=== PATIENT | male | born 1975 | race Caucasian/White ===

== ENCOUNTER 2021-11-23 16:28 | Emergency (ER) | payer OTHER, SELFPAY ==
--- NOTE | ~2021-11-23 | XR_ITS ---
EXAMINATION: XR elbow RT 2V CLINICAL INFORMATION: Pain COMPARISON: None TECHNIQUE: 3 views of the elbow XR/XR elbow RT 2V FINDINGS/IMPRESSION: No acute fracture or dislocation. Joint spaces are maintained. No joint effusion. Soft tissues are unremarkable.
[2021-11-23 17:04] VITALS: BP 154/84; PULSE 98; RESP 18; TEMP 36.8; O2SAT 99; BMI 22.9
--- NOTE | 2021-11-23 17:31 | ED_ITS ---
HPI - Extremity Problem General Chief complaint: Extremity Injury, Upper Stated complaint: elbow pain/No injury Time Seen by Provider: 11/23/21 17:27 Source: patient Mode of arrival: ambulatory Limitations: no limitations History of Present Illness HPI Narrative: 46 yold male presents to the ED for right elbow pain for the past 2 weeks. patient describes elbow pain as clicking sound in elbow when he moves radiating down right hand. patient states no swelling, redness, fever, chills, or trauma. Related Data Previous Rx's Medication Instructions Recorded naproxen 500 mg tablet 500 mg PO BID PRN 10 Days #20 tab 11/23/21 Allergies Allergy/AdvReac Type Severity Reaction Status Date / Time No Known Allergies Allergy Verified 11/23/21 17:03 [No Known Allergies*] Review of Systems Verdana 4l Review of Systems: Verdana 4d elbow Verdana 4d Yes all Verdana 4d other systems are reviewed and are negative [facility] Past Medical History Medical History (Updated 11/23/21 @ 18:21 by JOSE Jones) Heart murmur Social History Social History Advance Directives: No Advance Directives Information Provided: No Physical Exam Verdana 4l Vital Signs: Verdana 4d Verdana 4d Vital Signs: Verdana 4d Verdana 4Bd Last Vital Signs Verdana 4d Graphics Artist New 4d Graphics Artist New 4d Temp 98.3 F 11/23/21 17:04 Graphics Artist New 4d Pulse 98 11/23/21 17:04 Graphics Artist New 4d Resp 18 11/23/21 17:04 BP 154/84 H 11/23/21 17:04 Pulse Ox 99 11/23/21 17:04 BMI result Body Mass Index 22.9 Const: General: cooperative, healthy appearing, comfortable, no acute distress, well developed, alert, awake and Physically active Orientation/consciousness: patient oriented x3 HENMT: Head: Yes normal to inspection, Yes No palpable skull fracture present, Yes normocephalic, Yes atraumatic and No abrasion Eyes: General: appearance normal, both eyes and all related structures Neck: Neck: Yes normal visual inspection, Yes full ROM, Yes no lymphadenopathy, Yes no meningeal signs, Yes trachea midline, Yes supple, No anterior neck swelling and No tender Chest: Chest palpation & inspection: normal inspection of the chest and normal palpation of entire chest wall Resp: Effort & Inspection: normal respiratory effort and able to speak in complete sentences Auscultation: clear to auscultation bilaterally Cardio: Jugular venous distension: no JVD Heart sounds: S1 normal heart sound present and S2 normal heart sound present GI: Inspection: Yes normal to inspection and No abdominal wall ecchymosis Palpation (GI): Soft to palpation, not firm, nontender, no guarding and not rigid : General: No CVA tenderness and Yes no CVA tenderness Back/Spine/Pelvis: Back: no CVA tenderness, No CVA tenderness and No back tenderness Skin: General skin exam: no rashes or lesions noted and elasticity normal Neuro: General: patient oriented x3, gait normal, tone normal, moves all extremities, Normal light touch and pain sensation and no meningeal signs Extrem: General: Yes normal to inspection and Yes full ROM Shoulder/upper arm images: 1. Mild tenderness on palpation. Negative for erythema, swelling, ecchymosis, crepitus, or deformity. Brachial and radial pulse intact. Motor/neuro/vascular exam of right upper extremities intact. Psych: Appearance: grossly normal, well kempt and not disheveled Course Course Course Narrative: Not suspecting septic joint. Was sent for x-ray. Reevaluation(s) Reevaluation #1: Patient's xray is normal. Time: 18:16 MDM - Extremity (Nontraumatic) MDM Narrative Medical decision making narrative: elbow pain Discharge Plan Discharge Clinical Impression: Elbow pain Patient Disposition: Home, Self-Care Instructions: Elbow Sprain (ED) Additional Instructions: Xray came back negative for elbow fracture, effusions, or dilocation. You will be discharged with pain meds. Please follow up with PCP. Return to the ED redness, swelling, fever, chills, pus discharge, or any other concerning symptoms. Prescriptions: New naproxen 500 mg tablet 500 mg PO BID PRN (Reason: pain) 10 Days Qty: 20 0RF Referrals: Jethro Warren MD [Physician] - 2 days (Elbow pain) Interventions: ED Discharge Assessment Last Done: 11/23/21 18:57 Discharge Date/Time: 11/23/21 18:57 Print Language: Lithuanian
== END 2021-11-23 18:57 | disposition home or self-care (01) ==
PROVIDERS: Emergency Provider Internal Medicine
DX: M25.521 Pain in right elbow (principal)
CPT/HCPCS: 73070; 99283

== ENCOUNTER 2021-11-28 21:33 | Emergency (ER) | payer OTHER, SELFPAY ==
[2021-11-28 21:42] VITALS: BP 138/86; PULSE 100; RESP 16; TEMP 36.8; O2SAT 96; BMI 22.2
--- NOTE | 2021-11-28 22:12 | ED_ITS ---
HPI - Extremity Problem General Chief complaint: Extremity Injury, Upper Stated complaint: right arm pain/etoh Time Seen by Provider: 11/28/21 22:15 Source: patient Mode of arrival: ambulatory Limitations: no limitations History of Present Illness HPI Narrative: Patient alcoholic homeless came to the ER by ambulance for chronic right forearm nerve pain with going on for long time but actually patient came because he is homeless and cold outside and did not eat anything today patient intoxicated when arrived while in the ER patient started saying that he wants to hurt himself or hurt people making vague suicidal ideations Related Data Previous Rx's Medication Instructions Recorded naproxen 500 mg tablet 500 mg PO BID PRN 10 Days #20 tab 11/23/21 Allergies Allergy/AdvReac Type Severity Reaction Status Date / Time No Known Allergies Allergy Verified 11/23/21 17:03 [No Known Allergies*] Review of Systems Verdana 4l Review of Systems: Yes all other systems are reviewed and Verdana 4d are negative [facility] Past Medical History Medical History Heart murmur Social History Social History Advance Directives: No Physical Exam Verdana 4l Vital Signs: Verdana 4d Verdana 4d Vital Signs: Verdana 4d Verdana 4Bd Last Vital Signs Verdana 4d Shipping Checker New 4d Shipping Checker New 4d Temp 97.6 F 11/28/21 23:54 Shipping Checker New 4d Pulse 91 11/28/21 23:54 Shipping Checker New 4d Resp 18 11/28/21 23:54 BP 120/89 11/28/21 23:54 Pulse Ox 97 11/28/21 23:54 BMI result Body Mass Index 22.2 Appearance: Alert. Oriented X3. No acute distress. intoxicated Eyes: No pallor/ icterus ENT: Pharynx normal. Oral Mucosa moist Neck: Normal inspection. Neck supple. CVS: Normal heart rate and rhythm. Pulses normal. Respiratory: No respiratory distress. Equal air entry bilateral, no wheezing/rales/rhonchi Abdomen: Soft and nontender. Bowel sounds are present, no mass palpable, no CVA tenderness Skin: Skin warm and dry. Normal skin color. Normal skin turgor. Extremities: No lower extremity edema. No calf tenderness Neuro: Oriented X 3. No motor deficit. No sensory deficit.No cerebellar signs , cranial nerves II-XII intact MDM - Extremity (Nontraumatic) MDM Narrative Medical decision making narrative: Initially patient came for nonspecific complaints right forearm pain and alcohol use while stay in the ER patient started complaining of suicidal feeling and homicidal ideation will consult care team Lab Data Result diagrams: 11/28/21 22:52 11/28/21 22:52 Labs: Lab Results 11/28/21 11/28/21 11/28/21 Range/Units 22:52 22:52 22:52 WBC 7.1 (4.8-10.8) X10*3/uL RBC 4.11 L (4.60-5.80) X10*6/uL Hgb 13.9 L (14.0-18.0) g/dl Hct 39.9 L (42.0-52.0) % MCV 97.1 (80.0-98.0) fL MCH 33.8 H (27.0-33.0) pg MCHC 34.8 (31.0-36.0) g/dl RDW 12.5 (11.0-16.0) % Plt Count 183 (160-400) X10*3/uL MPV 10.0 (9.4-12.4) fL Immature Gran % (Auto) 0.3 (0.0-0.4) % Neut % (Auto) 67.3 (45-73) % Lymph % (Auto) 22.6 (20-40) % Tyrrell % (Auto) 6.8 (2-11) % Eos % (Auto) 1.5 (0-4) % Baso % (Auto) 1.5 (0-2) % Lymph # (Auto) 1.6 (1.2-4.9) X10*3/uL Tyrrell # (Auto) 0.5 (0.1-1.2) X10*3/uL Eos # (Auto) 0.1 (0.0-0.4) X10*3/uL Baso # (Auto) 0.1 (0.0-0.2) X10*3/uL Abs Immat Gran (auto) 0.02 (0.00-0.03) X10*3/uL Absolute Neuts (auto) 4.8 (2.0-8.3) x10*3/uL Absolute Nucleated RBC 0.000 (0.0-0.012) X10*3/uL Nucleated RBC % (auto) 0.0 (0.0-0.2) /100WBC Sodium 142 (135-145) mmol/L Potassium 3.5 (3.3-5.1) mmol/L Chloride 105 (96-108) mmol/L Carbon Dioxide 28 (22-29) mmol/L Anion Gap 13 (12-20) BUN 9 (9-16) mg/dL Creatinine 0.77 (0.5-1.4) mg/dL Estim Creat Clear Calc 120.4 Estimated GFR > 60 Random Glucose 114 (60-115) mg/dL Calcium 8.7 (8.4-10.2) mg/dL Magnesium 2.3 (1.6-2.6) mg/dL Total Bilirubin 0.3 (0.0-1.0) mg/dL AST 71 H (5-37) U/L ALT 44 H (0-40) U/L Alkaline Phosphatase 84 (39-117) U/L Total Protein 7.0 (6.5-8.0) g/dL Albumin 4.1 (3.5-5.0) g/dL Urine Opiates Screen (Not Detect) Urine Fentanyl Screen (Not Detect) Ur Barbiturates Screen (Not Detect) Ur Phencyclidine Scrn (Not Detect) Ur Amphetamines Screen (Not Detect) U Benzodiazepines Scrn (Not Detect) Urine Cocaine Screen (Not Detect) U Marijuana (THC) Screen (Not Detect) Ethyl Alcohol mg/dL COVID-19 (TAMERA) Negative (Negative) COVID-19 Clin Com See Note 11/28/21 11/28/21 Range/Units 22:52 22:52 WBC (4.8-10.8) X10*3/uL RBC (4.60-5.80) X10*6/uL Hgb (14.0-18.0) g/dl Hct (42.0-52.0) % MCV (80.0-98.0) fL MCH (27.0-33.0) pg MCHC (31.0-36.0) g/dl RDW (11.0-16.0) % Plt Count (160-400) X10*3/uL MPV (9.4-12.4) fL Immature Gran % (Auto) (0.0-0.4) % Neut % (Auto) (45-73) % Lymph % (Auto) (20-40) % Tyrrell % (Auto) (2-11) % Eos % (Auto) (0-4) % Baso % (Auto) (0-2) % Lymph # (Auto) (1.2-4.9) X10*3/uL Tyrrell # (Auto) (0.1-1.2) X10*3/uL Eos # (Auto) (0.0-0.4) X10*3/uL Baso # (Auto) (0.0-0.2) X10*3/uL Abs Immat Gran (auto) (0.00-0.03) X10*3/uL Absolute Neuts (auto) (2.0-8.3) x10*3/uL Absolute Nucleated RBC (0.0-0.012) X10*3/uL Nucleated RBC % (auto) (0.0-0.2) /100WBC Sodium (135-145) mmol/L Potassium (3.3-5.1) mmol/L Chloride (96-108) mmol/L Carbon Dioxide (22-29) mmol/L Anion Gap (12-20) BUN (9-16) mg/dL Creatinine (0.5-1.4) mg/dL Estim Creat Clear Calc Estimated GFR Random Glucose (60-115) mg/dL Calcium (8.4-10.2) mg/dL Magnesium (1.6-2.6) mg/dL Total Bilirubin (0.0-1.0) mg/dL AST (5-37) U/L ALT (0-40) U/L Alkaline Phosphatase (39-117) U/L Total Protein (6.5-8.0) g/dL Albumin (3.5-5.0) g/dL Urine Opiates Screen Not Detected (Not Detect) Urine Fentanyl Screen Not Detected (Not Detect) Ur Barbiturates Screen Not Detected (Not Detect) Ur Phencyclidine Scrn Not Detected (Not Detect) Ur Amphetamines Screen Not Detected (Not Detect) U Benzodiazepines Scrn Not Detected (Not Detect) Urine Cocaine Screen POSITIVE H (Not Detect) U Marijuana (THC) Screen Not Detected (Not Detect) Ethyl Alcohol 397 H* mg/dL COVID-19 (TAMEAR) (Negative) COVID-19 Clin Com Discharge Plan Discharge Clinical Impression: Alcohol abuse Patient Disposition: Still a Patient Instructions: Abuse of Alcohol (DC) Additional Instructions: Follow detox Stop drinking alcohol Prescriptions: No Action naproxen 500 mg tablet 500 mg PO BID PRN (Reason: pain) 10 Days Qty: 20 0RF
--- NOTE | 2021-11-28 22:27 | PC.NURSE ---
PT made suicidal statements to this RN. PT stated that he is homeless and has been having constant thoughts of harming himself. PT stated that he tried to kill himself three days ago by jumping off a bridge.
[2021-11-28 22:57] VITALS: BP 118/75; PULSE 87; RESP 18; O2SAT 97
[2021-11-28 22:59] LABS: MANUAL DIFF FLAG NO
[2021-11-28 23:04] LABS: Basophils Absolute Auto 0.1 X10*3/uL (0.0-0.2); Basophils Percent Auto 1.5 % (0-2); Eosinophils Absolute Auto 0.1 X10*3/uL (0.0-0.4); Eosinophils Percent Auto 1.5 % (0-4); Hematocrit 39.9 % (42.0-52.0); Hemoglobin 13.9 g/dl (14.0-18.0); Imm Gran Abs Auto 0.02 X10*3/uL (0.00-0.03); Imm Gran Pct Auto 0.3 % (0.0-0.4); Lymphocytes Absolute Auto 1.6 X10*3/uL (1.2-4.9); Lymphocytes Percent Auto 22.6 % (20-40); Mean Corpuscular HGB Conc 34.8 g/dl (31.0-36.0); Mean Corpuscular Hemoglobin 33.8 pg (27.0-33.0); Mean Corpuscular Volume 97.1 fL (80.0-98.0); Monocytes Absolute Auto 0.5 X10*3/uL (0.1-1.2); Monocytes Percent Auto 6.8 % (2-11); Neutrophils Absolute Auto 4.8 x10*3/uL (2.0-8.3); Neutrophils Percent Auto 67.3 % (45-73); Platelet Count 183 X10*3/uL (160-400); Red Blood Count 4.11 X10*6/uL (4.60-5.80); Red Cell Distribution Width 12.5 % (11.0-16.0); White Blood Count 7.1 X10*3/uL (4.8-10.8)
[2021-11-28 23:12] LABS: Ethanol 397 mg/dL
[2021-11-28 23:16] LABS: Alanine Aminotransferase 44 U/L (0-40); Albumin Level 4.1 g/dL (3.5-5.0); Alkaline Phosphatase 84 U/L (39-117); Anion Gap 13 (12-20); Aspartate Amino Transferase 71 U/L (5-37); Bilirubin Total 0.3 mg/dL (0.0-1.0); Blood Urea Nitrogen 9 mg/dL (9-16); Calcium 8.7 mg/dL (8.4-10.2); Carbon Dioxide 28 mmol/L (22-29); Chloride 105 mmol/L (96-108); Creatinine Clr Calc Pharmacy 120.4; Estimated Glomerular Filt Rate > 60; Glucose Random 114 mg/dL (60-115); Magnesium 2.3 mg/dL (1.6-2.6); Potassium 3.5 mmol/L (3.3-5.1); Sodium 142 mmol/L (135-145)
[2021-11-28 23:17] LABS: Amphetamine Screen Urine Not Detected (Not Detect); Barbiturates, Urine Not Detected (Not Detect); Benzodiazepines Screen Urine Not Detected (Not Detect); COVID-19 Test Negative (Negative); Cannabinoid Screen Urine Not Detected (Not Detect); Cocaine Screen Urine POSITIVE (Not Detect); Fentanyl, urine Not Detected (Not Detect); IDNOW Serial# 55D5AD1C; Opiate Screen Urine Not Detected (Not Detect); Phencyclidine Screen Urine Not Detected (Not Detect)
[2021-11-28] MEDS: Folic Acid 1 MG TABLET PO (23:19)
[2021-11-28] MEDS: Thiamine HCL 100 MG TABLET PO (23:19)
[2021-11-28 23:54] VITALS: BP 120/89; PULSE 91; RESP 18; TEMP 36.4; O2SAT 97
--- NOTE | 2021-11-29 05:43 | PC.NURSE ---
Patient slept through the night, no distress observed/reported, appetite good, hydrating well, BHN referral completed/confirmed, pending evaluation in the morning, medication compliant, behavior appropriate, asymptomatic of withdrawal, VSS, will continue to monitor.
--- NOTE | 2021-11-29 07:00 | PC.NURSE ---
patient appears to remain asleep at present respirations are even and unlabored patient appears in no distress.
--- NOTE | 2021-11-29 11:28 | MHC.CARE ---
Patient is a 46 year single man, previously unknown to [facility] or [facility] for mental health emergencies, who came to the Emergency Dept. last night by ambulance that he called for treatment of arm pain. He was intoxicated (BAL 397) and reported vague suicidal ideation during triage. After medical clearance he was fully evaluated by [facility] and determined not in need of inpatient psychiatric treatment, cleared for discharge. By self-report, patient has no history of suicide attempts or gestures. He explained that he does not want to end his life, was frustrated and feeling hopeless about addiction and inability to abstain. At this time patient has no providers or family support, is relatively healthy and has no medical issues besides the arm pain, takes no medication. CARE Team met with patient in [facility]; he was alert, oriented, pleasant and engaged. No signs of psychosis or thought disorder, denied wanting to harm himself or others. He appeared motivated for treatment and expressed a strong desire to obtain long-term sobriety.
[2021-11-29 12:10] VITALS: BP 144/89; PULSE 98; TEMP 36; O2SAT 98
--- NOTE | 2021-11-29 12:52 | MHC.RECOVSUP ---
? Reason for consult:Recovery support o Current location: [facility] o Identified substance use concern:ETOH, cocaine - Seeking ATS (detox) - Support ? Intervention: o ATS bed search started/completed/in process o Harm reduction discussion ? Plan: o Bed search in progress to o Follow up tomorrow o Patient to follow up with [facility] after discharge ? Additional information: Patient seeking detox, spoke to patient regarding harm reduction and mat. Gave patient community resources.
[2021-11-29 17:31] VITALS: BP 149/83; PULSE 74; TEMP 37.1; O2SAT 98
== END 2021-11-29 19:02 | disposition home or self-care (01) ==
PROVIDERS: Emergency Provider Internal Medicine
DX: F10.10 Alcohol abuse, uncomplicated (principal); Y90.8 Blood alcohol level of 240 mg/100 ml or more; R45.851 Suicidal ideations; R45.850 Homicidal ideations; Z20.822 Contact with and (suspected) exposure to COVID-19; Z72.89 Other problems related to lifestyle; Z59.00 Homelessness unspecified
CPT/HCPCS: 80053; 80307; 82077; 83735; 85025; 87635; 99284

== ENCOUNTER 2022-06-01 09:35 | Outpatient (REF) | payer OTHER, SELFPAY | END 2022-06-01 09:36 | disposition home or self-care (01) | LOC: HO.HOSX 09:35 | PROVIDERS: Visit Provider Orthopaedic Surgery | DX: Z13.89 Encounter for screening for other disorder (principal) ==

== ENCOUNTER 2024-09-23 03:38 | Inpatient (IN) | payer OTHER, SELFPAY ==
--- NOTE | 2024-09-23 | ECG_ITS ---
Test Reason : CHECK PROLONG QTC Blood Pressure : / mmHG Vent. Rate : 072 BPM Atrial Rate : 072 BPM P-R Int : 128 ms QRS Dur : 086 ms QT Int : 396 ms P-R-T Axes : 047 -09 054 degrees QTc Int : 433 ms Normal sinus rhythm Normal ECG No previous ECGs available Referred By: Hazel Aceves Electronically Signed By:MONICA RAMOS
[2024-09-23 03:46] VITALS: PULSE 89; O2SAT 98
--- NOTE | 2024-09-23 03:47 | ED.PSYCH ---
HPI - Psych General Chief Complaint: Psychiatric Symptoms Stated Complaint: SI/HI, ETOH, SUBSTANCE Source: patient, EMS and old records reviewed Mode of arrival: EMS Limitations: no limitations History of Present Illness ED Provider: SVETLANA HPI Narrative: 48 yo male hx of PTSD notes crack cocaine today and ETOH use - no prior withdrawal or seizures. He is here c/o SI and HI states he has a list of people instead of hurting someone or himself he presented to the police station and asked for help. He denies any medical issues. He notes he has a place to stay in [place]. complaint: suicidal ideation, feels depressed, homicidal ideation and hallucinations Onset (ago): day(s) (few) Duration: getting worse History of same: Yes Relieving factors: none Exacerbating factors: drug use Context: recent alcohol abuse, recent drug abuse and not taking psychiatric medications Associated psychiatric symptoms: depression, suicidal ideation, homicidal ideation and auditory hallucinations Associated symptoms: denies other symptoms Treatments prior to arrival: none If self harm: admits thoughts of self harm Related Data Previous Rx's ?Medication ?Instructions ?Recorded naproxen 500 mg tablet 500 mg PO BID PRN pain 10 days #20 11/23/21 tabs Allergies Allergy/AdvReac Type Severity Reaction Status Date / Time No Known Allergies Allergy Verified 09/23/24 04:04 [No Known Allergies*] Review of Systems Review of Systems: Constitutional : No Fever, No Chills ENT/Mouth : No Ear Pain, No Nasal Congestion, No sore throat Eyes: No Eye Pain, No Swelling, No Redness Cardiovascular : No Chest Pain, No SOB Respiratory : No Cough, No Sputum, No Dyspnea Gastrointestinal : No Nausea, No Vomiting, No Diarrhea, No Hematochezia, No Melena Genitourinary : No Dysuria, No Urinary Frequency, No Hematuria Musculoskeletal : No Myalgias Skin : No Skin Lesions, No rash Neuro : No Weakness, No Numbness, No Paresthesias, No Dizziness, No Headache Psych : positive Anxiety, positive Depression, positive SI/HI All other systems reviewed and are negative PMFSH Past Medical History Attestation statement: The following information was validated with the patient. Source: old records reviewed Medical History Active substance abuse Heart murmur Social History Social History (Updated 09/23/24 @ 04:00 by Hazel Aceves DO) Alcohol intake: current Patient Tobacco Use Status: Current someday Tobacco user Substance Use Type: Crack/Cocaine Physical Exam Vital Signs: Appearance: Alert. Oriented X3. No acute distress. Unkempt disheveled Eyes: Pupils equal, round and reactive to light. ENT: Pharynx normal. Neck: Normal inspection. Neck supple. CVS: Normal heart rate and rhythm. Pulses normal. Respiratory: No respiratory distress. Breath sounds normal. Abdomen: Soft and non-tender. Skin: Skin warm and dry. Normal skin color. Normal skin turgor. Extremities: No lower extremity edema. No calf ttp Neuro: Oriented X 3. No motor deficit. No sensory deficit. CN2-12 intact Medical Decision Making Medical Decision Making [facility] Narrative: 48 yo male with drug abuse and ETOH abuse here with SI/HI/AH he has no medical complaints at this time will order labs, CIWA, ativan Differential Diagnosis Differential Diagnoses: The differential diagnosis associated with the presentation includes drug use, depression, SI Admission/Observation Consideration of admission/observation: Escalation of care including admission/observation considered physician observation started at 414am Consult Healthcare Provider Management of the patient was discussed with: Behavioral Health Provider Lab Data [facility] Lab Attestation statement: I reviewed the patient's lab results. Independent Historian Clinical information obtained from an independent historian. History obtained from or confirmed by: EMS External Record Review External record reviewed: Outpatient record Social Determinants Patient?s care significantly limited by Social Determinants of Health including: Problems related to primary support group Discharge Plan Discharge Clinical Impression: Alcohol abuse, Active substance abuse Patient Disposition: Still a Patient Prescriptions: No Action naproxen 500 mg tablet 500 mg PO BID PRN (Reason: pain) 10 Days Qty: 20 0RF Interventions: [place]-Suicide Risk Severity Scale Last Done: 09/23/24 04:05 Print Language: Iranian
[2024-09-23 03:56] VITALS: BP 135/101; PULSE 74; RESP 16; TEMP 37.2; O2SAT 98; BMI 23.0
--- NOTE | 2024-09-23 04:27 | PC.NURSE ---
Patient stated to [regarding homicidal ideation/intent]: I have a list of people that he wants to harm. Pt refusing to disclose any additional information regarding SI/HI plans at this time. Pt states that he is seeking detox. Dual Dx needed. Pt is calm/cooperative at this time. Labs were attempted to be drawn, but were unsuccessful. Pt agreeable to another attempt to obtain labs in a few minutes . Pt also stated that he urinated just prior to coming to ED, but will provide a urine specimen once he's able. Dr. Aceves aware.
--- NOTE | 2024-09-23 05:00 | PC.NURSE ---
Labs collected and sent for analysis. Awaiting results.
[2024-09-23 05:01] LABS: MANUAL DIFF FLAG NO
[2024-09-23 05:02] LABS: Basophils Absolute Auto 0.1 X10*3/uL (0.0-0.2); Basophils Percent Auto 0.7 % (0-2); Eosinophils Percent Auto 0.4 % (0-4); Hematocrit 48.4 % (42.0-52.0); Hemoglobin 17.1 g/dl (14.0-18.0); Imm Gran Abs Auto 0.03 X10*3/uL (0.00-0.03); Imm Gran Pct Auto 0.3 % (0.0-0.4); Lymphocytes Absolute Auto 1.9 X10*3/uL (1.2-4.9); Lymphocytes Percent Auto 18.7 % (20-40); Mean Corpuscular HGB Conc 35.3 g/dl (31.0-36.0); Mean Corpuscular Hemoglobin 30.3 pg (27.0-33.0); Mean Corpuscular Volume 85.8 fL (80.0-98.0); Monocytes Absolute Auto 0.6 X10*3/uL (0.1-1.2); Monocytes Percent Auto 5.9 % (2-11); Neutrophils Absolute Auto 7.6 x10*3/uL (2.0-8.3); Platelet Count 315 X10*3/uL (160-400); Red Blood Count 5.64 X10*6/uL (4.60-5.80); Red Cell Distribution Width 15.5 % (11.0-16.0); White Blood Count 10.2 X10*3/uL (4.8-10.8)
[2024-09-23 05:21] LABS: Amphetamine Screen Urine Not Detected (Not Detect); Barbiturates, Urine Not Detected (Not Detect); Benzodiazepines Screen Urine Not Detected (Not Detect); Buprenorphine Scr Not Detected (Not Detect); Cannabinoid Screen Urine POSITIVE (Not Detect); Cocaine Screen Urine POSITIVE (Not Detect); Fentanyl, urine POSITIVE (Not Detect); Methadone Screen, Urine Not Detected (Not Detect); Opiate Screen Urine Not Detected (Not Detect); Oxycodone Screen Urine Not Detected (Not Detect); Phencyclidine Screen Urine Not Detected (Not Detect)
[2024-09-23 05:23] LABS: Albumin Level 4.8 g/dL (3.5-5.0); Alkaline Phosphatase 92 U/L (39-117); Anion Gap 17 (12-20); Aspartate Amino Transferase 53 U/L (5-37); Bilirubin Direct 0.2 mg/dL (0.0-0.5); Bilirubin Total 0.5 mg/dL (0.0-1.0); Blood Urea Nitrogen 12 mg/dL (9-16); Calcium 9.7 mg/dL (8.4-10.2); Carbon Dioxide 26 mmol/L (22-29); Chloride 102 mmol/L (96-108); Creatinine Clr Calc Pharmacy 118.6; Estimated Glomerular Filt Rate > 60; Ethanol 108 mg/dL; Glucose Random 108 mg/dL (60-115); Magnesium 2.1 mg/dL (1.6-2.6); Potassium 4.1 mmol/L (3.3-5.1); Sodium 141 mmol/L (135-145); Total Protein 8.2 g/dL (6.5-8.0)
[2024-09-23 05:41] LABS: Alanine Aminotransferase 60 U/L (0-40)
--- NOTE | 2024-09-23 06:59 | PC.NURSE ---
Assumed care of patient at 0645, patient appears to be sleeping, respirations even and unlabored, no apparent distress noted. Continue plan of care for CARE team alonzo
--- NOTE | 2024-09-23 08:59 | MHC.CARE ---
Pt will be an inpatient Dual DX bedsearch.
[2024-09-23 09:16] LABS: Appearance Urine Clear; Color Urine Yellow; Glucose Urine UA Negative (Negative); Leukocyte Esterase Urine Moderate (2+) (Negative); Nitrite Urine Negative (Negative); PH 5.5 (5.0-9.0); Specific Gravity - Urine 1.015 (1.005-1.025); UMIC TRIGGER UA YES; Urine Blood Moderate (2+) (Negative); Urine Ketones Negative (Negative); Urine Protein 100 (2+) mg/dL (Neg-Trace)
[2024-09-23 09:34] LABS: Bacteria Urine None Seen (None Seen); Hyaline Casts Urine 0-2 /LPF (0-2); Squamous Epithelial Cell Urine 0-2 /HPF (0-2); WBC Urine 21-50 /HPF (0-5)
[2024-09-23] MEDS: Thiamine HCL 100 MG TABLET PO (12:25)
[2024-09-23 12:29] VITALS: BP 131/76; PULSE 76; RESP 16; TEMP 36.6; O2SAT 97
[2024-09-23 13:28] VITALS: BP 126/85; PULSE 78; RESP 18; TEMP 37; O2SAT 97
[2024-09-23 13:50] VITALS: BMI 24.0
--- NOTE | 2024-09-23 16:03 | PC.ADMIT ---
Jared was [place] [facility] [place] for treatment of unspecified depressive disorder, alcohol use disorder, cocaine use disorder and opioid use disorder. [place] [facility] [place]ging [place] [employer] [place] with thoughts of harming others and hearing voices. He reports that he recently started smoking cocaine about 7 months ago and drinking at least 2-3 times a week for the last 6 months. He reports he drinks over 10 or more drinks at a time when he drinks. His tox screen was positive for cocaine, marijuana and fentanyl and his BAL was 108. He was calm, pleasant and cooperative during admission assessment but was not willing to provide much information when speaking with TW. He denies SI/HI/AVH at this time. When speaking on his goals of admission, he reports wanting to get better and possibly get back into a program. He reports having a history of nightmares and difficulty staying asleep due to racing thoughts. His thought process is clear and linear and his focus is intact. He denies any physical complaints at this time. He has a reported heart murmur. He was placed on CIWA q4h. He was placed on 15 minute checks for safety.
[2024-09-23 16:14] VITALS: BP 141/82
[2024-09-23] MEDS: LORazepam 1 MG TABLET PO ×2 (16:16→21:14)
[2024-09-23 17:15] LABS: Ferritin 345 ng/mL (20-250)
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
[2024-09-23 20:00] VITALS: BP 126/80; PULSE 84; RESP 16; TEMP 36.9; O2SAT 97
[2024-09-23] MEDS: Nicotine Polacrilex 2 MG GUM BUCCAL (20:21)
[2024-09-23] MEDS: traZODone HCL 50 MG TABLET PO (21:14)
[2024-09-23] MEDS: Ibuprofen 400 MG TABLET PO (21:34)
[2024-09-24 08:00] VITALS: BP 100/56; PULSE 65; O2SAT 100
--- NOTE | 2024-09-24 08:03 | HO.PSYCHPN ---
Subjective Subjective Date of Service: 09/24/24 Reason For Visit: SI/HI Subjective Notes: Conditional Voluntary Interim History: Laying in bed. continues on CIWA. decline to meet with T/W d/t feeling tired and wanting to sleep. pt stated, I'm okay . nursing to monitor. Medication Compliance: Yes Attending Groups: No Review of Systems Review of Systems Yes Unobtainable due to mental status Mental Status Exam Mental Status Exam Narrative: unable to obtain d/t patient requesting to sleep and not meet with T/W. Diagnostics Vital Signs (24Hr): Vital Signs - 24 hr 09/23/24 12:29 09/23/24 13:28 09/23/24 16:14 Temperature 97.8 F 98.6 F Pulse Rate 76 78 Respiratory Rate 16 18 Blood Pressure 131/76 126/85 141/82 H Pulse Oximetry 97 97 Oxygen Delivery Method Room Air Room Air 09/23/24 20:00 Temperature 98.5 F Pulse Rate 84 Respiratory Rate 16 Blood Pressure 126/80 Pulse Oximetry 97 Oxygen Delivery Method Room Air BMI result Body Mass Index 24.0 Labs 09/23/24 04:55 09/24/24 07:47 Labs: Laboratory Results - last 48 hr 09/23/24 09/23/24 04:55 05:01 WBC 10.2 RBC 5.64 D Hgb 17.1 D Hct 48.4 D MCV 85.8 MCH 30.3 MCHC 35.3 RDW 15.5 Plt Count 315 D MPV 9.0 L Immature Gran % (Auto) 0.3 Neut % (Auto) 74.0 H Lymph % (Auto) 18.7 L [place] % (Auto) 5.9 Eos % (Auto) 0.4 Baso % (Auto) 0.7 Lymph # (Auto) 1.9 [place] # (Auto) 0.6 Eos # (Auto) 0.0 Baso # (Auto) 0.1 Abs Immat Gran (auto) 0.03 Absolute Neuts (auto) 7.6 Absolute Nucleated RBC 0.000 Nucleated RBC % (auto) 0.0 Sodium 141 Potassium 4.1 Chloride 102 Carbon Dioxide 26 Anion Gap 17 BUN 12 Creatinine 0.79 Estim Creat Clear Calc 118.6 Estimated GFR > 60 Random Glucose 108 Calcium 9.7 D Magnesium 2.1 Ferritin 345 H Total Bilirubin 0.5 Direct Bilirubin 0.2 AST 53 H ALT 60 H Alkaline Phosphatase 92 Total Protein 8.2 H Albumin 4.8 Urine Color Yellow Urine Appearance Clear Urine pH 5.5 Ur Specific [place] 1.015 Urine Protein 100 (2+) H Urine Glucose (UA) Negative Urine Ketones Negative Urine Blood Moderate (2+) H Urine Nitrite Negative Ur Leukocyte Esterase Moderate (2+) H Urine RBC 3-5 H Urine WBC 21-50 H Ur Squamous Epith Cells 0-2 Urine Bacteria None Seen Hyaline Casts 0-2 Urine Opiates Screen Not Detected Ur Buprenorphine Scrn Not Detected Ur Oxycodone Screen Not Detected Urine Methadone Screen Not Detected Urine Fentanyl Screen POSITIVE H Ur Barbiturates Screen Not Detected Ur Phencyclidine Scrn Not Detected Ur Amphetamines Screen Not Detected U Benzodiazepines Scrn Not Detected Urine Cocaine Screen POSITIVE H U Marijuana (THC) Screen POSITIVE H Ethyl Alcohol 108 Medications Medications Current Medications Al Hydroxide/Mg Hydroxide (Magnesium Hydrox/Alum Hydrox 30 Ml Oral.Susp) 30 ml PO Q6H PRN PRN Reason: Heartburn/Nausea Hydroxyzine HCl (Hydroxyzine Hcl 25 Mg Tablet) 25 mg PO Q6H PRN PRN Reason: Anxiety Ibuprofen (Ibuprofen 400 Mg Tablet) 400 mg PO Q6H PRN PRN Reason: Pain, Moderate(Pain Scale 4-6) Last Admin: 09/23/24 21:34 Dose: 400 mg Lorazepam (Lorazepam 1 Mg Tablet) 1 mg PO Q4H PRN PRN Reason: ciwa 7-12 Last Admin: 09/23/24 21:14 Dose: 1 mg Lorazepam (Lorazepam 1 Mg Tablet) 2 mg PO Q4H PRN PRN Reason: ciwa 13-16 Lorazepam (Lorazepam 1 Mg Tablet) 2 mg PO Q4H PRN PRN Reason: ciwa >17, call Magnesium Hydroxide (Milk Of Magnesia 30 Ml Oral.Susp) 30 ml PO DAILY PRN PRN Reason: Constipation Nicotine (Nicotine 21 Mg Patch.Td24) 21 mg TRANSDERMA DAILY PRN PRN Reason: nicotine cravings Nicotine Polacrilex (Nicotine Polacrilex 2 Mg Gum) 2 mg BUCCAL Q2H PRN PRN Reason: Nicotine Cravings Last Admin: 09/23/24 20:21 Dose: 2 mg Thiamine HCl (Thiamine Hcl 100 Mg Tablet) 100 mg PO DAILY PITO Last Admin: 09/23/24 12:25 Dose: 100 mg Trazodone HCl (Trazodone Hcl 50 Mg Tablet) 50 mg PO BEDTIME MRX1 PRN PRN Reason: Insomnia Last Admin: 09/23/24 21:14 Dose: 50 mg Allergies Allergies Allergy/AdvReac Type Severity Reaction Status Date / Time No Known Allergies Allergy Verified 09/23/24 04:04 [No Known Allergies*] Assessment & Plan Assessment & Plan (1) Mood disorder: Status: Acute Code(s): F39 - Unspecified mood [affective] disorder (2) Cocaine use disorder, moderate, dependence: Status: Acute Code(s): F14.20 - Cocaine dependence, uncomplicated (3) Alcohol use disorder, moderate, dependence: Status: Acute Code(s): F10.20 - Alcohol dependence, uncomplicated Plan 09/24: Laying in bed. continues on CIWA. decline to meet with T/W d/t feeling tired . pt stated, I'm okay . nursing to monitor. Reason for continued inpatient stay Substantial Risk for: med/psych decompensation Time Spent With Patient Time: Total time managing care of this patient today _10___ minutes.
[2024-09-24 08:26] LABS: Estimated Average Glucose 117 mg/dL; Hemoglobin A1C 161.9881 umol/L; Hemoglobin A1c % 5.7 % (<6.0); Total Hemoglobin (HGBA1C) 4212.0901 umol/L
[2024-09-24] MEDS: LORazepam 1 MG TABLET PO ×2 (08:28→17:14)
[2024-09-24] MEDS: Thiamine HCL 100 MG TABLET PO (08:28)
[2024-09-24 08:36] LABS: Alanine Aminotransferase 51 U/L (0-40); Albumin Level 4.4 g/dL (3.5-5.0); Alkaline Phosphatase 88 U/L (39-117); Anion Gap 14 (12-20); Aspartate Amino Transferase 43 U/L (5-37); Bilirubin Total 0.5 mg/dL (0.0-1.0); Blood Urea Nitrogen 18 mg/dL (9-16); Calcium 10.1 mg/dL (8.4-10.2); Carbon Dioxide 27 mmol/L (22-29); Chloride 104 mmol/L (96-108); Cholesterol 208 mg/dL (<200); Creatinine Clr Calc Pharmacy 104.7; Estimated Glomerular Filt Rate > 60; Glucose Fasting 100 mg/dL (60-99); HDL Cholesterol 70 mg/dL (>40); LDL Cholesterol Calculated 125 mg/dL (<100); Potassium 4.4 mmol/L (3.3-5.1); Sodium 141 mmol/L (135-145); Total Protein 7.6 g/dL (6.5-8.0); Triglycerides 69 mg/dL (<150)
[2024-09-24 09:05] LABS: Folate 8.7 ng/mL (> or = 4.0); Vitamin B12 507 pg/mL (200-900)
[2024-09-24 16:07] VITALS: BP 117/71; PULSE 82; RESP 16; TEMP 37.1; O2SAT 96
[2024-09-24] MEDS: hydrOXYzine HCL 25 MG TABLET PO (17:59)
[2024-09-24] MEDS: Nicotine Polacrilex 2 MG GUM BUCCAL (18:00)
[2024-09-24 20:00] VITALS: BP 145/83; PULSE 57; RESP 16; TEMP 36.9; O2SAT 98
[2024-09-24] MEDS: Mirtazapine 15 MG TABLET PO (20:29)
[2024-09-24] MEDS: traZODone HCL 50 MG TABLET PO (20:29)
[2024-09-25 07:10] VITALS: BP 109/60; PULSE 68; RESP 14; TEMP 36.9; O2SAT 96
[2024-09-25 11:36] VITALS: BP 134/89; PULSE 89; RESP 16; TEMP 37.2; O2SAT 96
[2024-09-25] MEDS: Thiamine HCL 100 MG TABLET PO (11:39)
[2024-09-25] MEDS: LORazepam 1 MG TABLET PO ×2 (11:39→21:24)
--- NOTE | 2024-09-25 13:40 | P.PNPSI_ITS ---
Subjective Subjective Date of Service: 09/25/24 Reason For Visit: SI/HI Subjective Notes: 3 Day Interim History: Observed pacing unit hallway. keeping to self. Pt reports feeling anxious and depressed today; reports increased anxiety d/t peer having outburst. denies SI/HI/VH/AH. Per nursing, slept 8 hours last night. Continues on CIWA. Medication Compliance: Yes Side effects from medications: No Attending Groups: No Review of Systems Constitutional: Reports as per HPI Eyes: Reports as per HPI Reports as per HPI Cardiovascular: Reports as per HPI Respiratory: Reports as per HPI Gastrointestinal: Reports as per HPI Genitourinary: Reports as per HPI Musculoskeletal: Reports as per HPI Skin/Breast: Reports as per HPI Reports as per HPI Psychiatric: Reports as per HPI Endocrine: Reports as per HPI Hematologic/Lymphatic: Reports as per HPI Allergic/Immunologic: Reports as per HPI Mental Status Exam Mental Status Exam Narrative: Pt is alert and oriented; behavior is cooperative, guarded; dressed in casual attire; mood is described as anxious and depressed ; eye contact appropriate; Speech is normal rate, volume and prosody; thought process is organized; denies SI/HI/VH/AH. Diagnostics Vital Signs (24Hr): Vital Signs - 24 hr 09/24/24 16:07 09/24/24 20:00 09/25/24 07:10 Temperature 98.8 F 98.4 F 98.4 F Pulse Rate 82 57 68 Respiratory Rate 16 16 14 Blood Pressure 117/71 145/83 H 109/60 Pulse Oximetry 96 98 96 Oxygen Delivery Method Room Air Room Air Room Air 09/25/24 11:36 Temperature 99.0 F Pulse Rate 89 Respiratory Rate 16 Blood Pressure 134/89 Pulse Oximetry 96 Oxygen Delivery Method Room Air BMI result Body Mass Index 24.0 Labs 09/23/24 04:55 09/24/24 07:47 Labs: Laboratory Results - last 48 hr 09/23/24 09/24/24 04:55 07:47 Sodium 141 Potassium 4.4 Chloride 104 Carbon Dioxide 27 Anion Gap 14 BUN 18 H Creatinine 0.90 Estim Creat Clear Calc 104.7 Estimated GFR > 60 Fasting Glucose 100 H Estimat Average Glucose 117 Hemoglobin A1c % 5.7 Calcium 10.1 Ferritin 345 H Total Bilirubin 0.5 AST 43 H ALT 51 H Alkaline Phosphatase 88 Total Protein 7.6 Albumin 4.4 Triglycerides 69 Cholesterol 208 H LDL Cholesterol, Calc 125 H HDL Cholesterol 70 Vitamin B12 507 Folate 8.7 TSH 1.60 Medications Medications Current Medications Al Hydroxide/Mg Hydroxide (Magnesium Hydrox/Alum Hydrox 30 Ml Oral.Susp) 30 ml PO Q6H PRN PRN Reason: Heartburn/Nausea Hydroxyzine HCl (Hydroxyzine Hcl 25 Mg Tablet) 25 mg PO Q6H PRN PRN Reason: Anxiety Last Admin: 09/24/24 17:59 Dose: 25 mg Ibuprofen (Ibuprofen 400 Mg Tablet) 400 mg PO Q6H PRN PRN Reason: Pain, Moderate(Pain Scale 4-6) Last Admin: 09/23/24 21:34 Dose: 400 mg Lorazepam (Lorazepam 1 Mg Tablet) 1 mg PO Q4H PRN PRN Reason: ciwa 7-12 Last Admin: 09/25/24 11:39 Dose: 1 mg Lorazepam (Lorazepam 1 Mg Tablet) 2 mg PO Q4H PRN PRN Reason: ciwa 13-16 Lorazepam (Lorazepam 1 Mg Tablet) 2 mg PO Q4H PRN PRN Reason: ciwa >17, call Magnesium Hydroxide (Milk Of Magnesia 30 Ml Oral.Susp) 30 ml PO DAILY PRN PRN Reason: Constipation Mirtazapine (Mirtazapine 15 Mg Tablet) 15 mg PO BEDTIME [facility] Last Admin: 09/24/24 20:29 Dose: 15 mg Nicotine (Nicotine 21 Mg Patch.Td24) 21 mg TRANSDERMA DAILY PRN PRN Reason: nicotine cravings Nicotine Polacrilex (Nicotine Polacrilex 2 Mg Gum) 2 mg BUCCAL Q2H PRN PRN Reason: Nicotine Cravings Last Admin: 09/24/24 18:00 Dose: 2 mg Thiamine HCl (Thiamine Hcl 100 Mg Tablet) 100 mg PO DAILY PITO Last Admin: 09/25/24 11:39 Dose: 100 mg Trazodone HCl (Trazodone Hcl 50 Mg Tablet) 50 mg PO BEDTIME MRX1 PRN PRN Reason: Insomnia Last Admin: 09/24/24 20:29 Dose: 50 mg Allergies Allergies Allergy/AdvReac Type Severity Reaction Status Date / Time No Known Allergies Allergy Verified 09/23/24 04:04 [No Known Allergies*] Assessment & Plan Assessment & Plan (1) Mood disorder: Status: Acute Code(s): F39 - Unspecified mood [affective] disorder (2) Cocaine use disorder, moderate, dependence: Status: Acute Code(s): F14.20 - Cocaine dependence, uncomplicated (3) Alcohol use disorder, moderate, dependence: Status: Acute Code(s): F10.20 - Alcohol dependence, uncomplicated Plan 09/24: Laying in bed. continues on CIWA. decline to meet with T/W d/t feeling tired . pt stated, I'm okay . nursing to monitor. 09/25: Observed pacing unit hallway. keeping to self. Pt reports feeling anxious and depressed today; reports increased anxiety d/t peer having outburst. denies SI/HI/VH/AH. Per nursing, slept 8 hours last night. Continues on CIWA. Patient educated on: diagnosis and medication risk/benefits Reason for continued inpatient stay Substantial Risk for: med/psych decompensation Time Spent With Patient Time: Total time managing care of this patient today _20___ minutes.
--- NOTE | 2024-09-25 15:26 | PC.NURSE ---
Pt appraoched TW to ask for access to his phone to pay his bill It's just one button I need to push . TW told pt she would check with SW to see if this was a request that could be granted. SW stated the request would need to be evaluated at team Saturday. Pt was upset and stated I'm gonna loose my number because you won't let me use my phone and stormed off. Pt approached TW and reported I want to leave. I'm all better and don't need to be here . Pt educated on legal status and need to complete a 3day notice. Pt became angry and irritable and stated They told me if I came voluntarily I could leave whenever I wanted to! . Pt again was education on legal status with little effect. Pt reported this is bullsh*t and retired to his assigned room.
[2024-09-25 20:00] VITALS: BP 135/85; PULSE 85; RESP 16; TEMP 36.9; O2SAT 98
[2024-09-25] MEDS: Nicotine Polacrilex 2 MG GUM BUCCAL (20:06)
[2024-09-25] MEDS: hydrOXYzine HCL 25 MG TABLET PO (20:14)
[2024-09-25] MEDS: traZODone HCL 50 MG TABLET PO (21:24)
[2024-09-25] MEDS: Mirtazapine 15 MG TABLET PO (21:24)
[2024-09-26 08:00] VITALS: BP 127/69; PULSE 64; RESP 16; TEMP 36.8; O2SAT 95
--- NOTE | 2024-09-26 09:00 | HO.PSYCHPN ---
Subjective Subjective Date of Service: 09/26/24 Reason For Visit: SI/HI Subjective Notes: 3 Day Interim History: laying in bed napping. pt reports feeling fine today; pt stated, my meds are fine. I'm still trying to decide where I'm going to go after here . denies SI/HI/VH/AH. denies withdrawal symptoms. ZORA FORRESTER'lenora. continue ativan taper. Medication Compliance: Yes Side effects from medications: No Attending Groups: No Review of Systems Constitutional: Reports as per HPI Eyes: Reports as per HPI Reports as per HPI Cardiovascular: Reports as per HPI Respiratory: Reports as per HPI Gastrointestinal: Reports as per HPI Genitourinary: Reports as per HPI Musculoskeletal: Reports as per HPI Skin/Breast: Reports as per HPI Reports as per HPI Psychiatric: Reports as per HPI Endocrine: Reports as per HPI Hematologic/Lymphatic: Reports as per HPI Allergic/Immunologic: Reports as per HPI Mental Status Exam Mental Status Exam Narrative: Pt is alert and oriented; behavior is cooperative, guarded; dressed in casual attire; mood is described as fine ; eye contact appropriate; Speech is normal rate, volume and prosody; thought process is organized; focused on discharge. denies SI/HI/VH/AH. Diagnostics Vital Signs (24Hr): Vital Signs - 24 hr 09/25/24 11:36 09/25/24 20:00 Temperature 99.0 F 98.4 F Pulse Rate 89 85 Respiratory Rate 16 16 Blood Pressure 134/89 135/85 Pulse Oximetry 96 98 Oxygen Delivery Method Room Air Room Air BMI result Body Mass Index 24.0 Labs 09/23/24 04:55 09/24/24 07:47 Labs: Laboratory Results - last 48 hr 09/24/24 07:47 Vitamin B12 507 Folate 8.7 Medications Medications Current Medications Al Hydroxide/Mg Hydroxide (Magnesium Hydrox/Alum Hydrox 30 Ml Oral.Susp) 30 ml PO Q6H PRN PRN Reason: Heartburn/Nausea Hydroxyzine HCl (Hydroxyzine Hcl 25 Mg Tablet) 25 mg PO Q6H PRN PRN Reason: Anxiety Last Admin: 09/25/24 20:14 Dose: 25 mg Ibuprofen (Ibuprofen 400 Mg Tablet) 400 mg PO Q6H PRN PRN Reason: Pain, Moderate(Pain Scale 4-6) Last Admin: 09/23/24 21:34 Dose: 400 mg Lorazepam (Lorazepam 1 Mg Tablet) 1 mg PO Q4H PRN PRN Reason: ciwa 7-12 Last Admin: 09/25/24 21:24 Dose: 1 mg Lorazepam (Lorazepam 1 Mg Tablet) 2 mg PO Q4H PRN PRN Reason: ciwa 13-16 Lorazepam (Lorazepam 1 Mg Tablet) 2 mg PO Q4H PRN PRN Reason: ciwa >17, call Magnesium Hydroxide (Milk Of Magnesia 30 Ml Oral.Susp) 30 ml PO DAILY PRN PRN Reason: Constipation Mirtazapine (Mirtazapine 15 Mg Tablet) 15 mg PO BEDTIME PITO Last Admin: 09/25/24 21:24 Dose: 15 mg Nicotine (Nicotine 21 Mg Patch.Td24) 21 mg TRANSDERMA DAILY PRN PRN Reason: nicotine cravings Nicotine Polacrilex (Nicotine Polacrilex 2 Mg Gum) 2 mg BUCCAL Q2H PRN PRN Reason: Nicotine Cravings Last Admin: 09/25/24 20:06 Dose: 2 mg Thiamine HCl (Thiamine Hcl 100 Mg Tablet) 100 mg PO DAILY PITO Last Admin: 09/25/24 11:39 Dose: 100 mg Trazodone HCl (Trazodone Hcl 50 Mg Tablet) 50 mg PO BEDTIME MRX1 PRN PRN Reason: Insomnia Last Admin: 09/25/24 21:24 Dose: 50 mg Allergies Allergies Allergy/AdvReac Type Severity Reaction Status Date / Time No Known Allergies Allergy Verified 09/23/24 04:04 [No Known Allergies*] Assessment & Plan Assessment & Plan (1) Mood disorder: Status: Acute Code(s): F39 - Unspecified mood [affective] disorder (2) Cocaine use disorder, moderate, dependence: Status: Acute Code(s): F14.20 - Cocaine dependence, uncomplicated (3) Alcohol use disorder, moderate, dependence: Status: Acute Code(s): F10.20 - Alcohol dependence, uncomplicated Plan 09/24: Laying in bed. continues on . decline to meet with T/W d/t feeling tired . pt stated, I'm okay . nursing to monitor. 09/25: Observed pacing unit hallway. keeping to self. Pt reports feeling anxious and depressed today; reports increased anxiety d/t peer having outburst. denies SI/HI/VH/AH. Per nursing, slept 8 hours last night. Continues on CIWA. 09/26: denies withdrawal symptoms. TRAVONWA DC'd. continue ativan taper. Patient educated on: medication risk/benefits Reason for continued inpatient stay Substantial Risk for: med/psych decompensation Time Spent With Patient Time: Total time managing care of this patient today _20___ minutes.
[2024-09-26] MEDS: Thiamine HCL 100 MG TABLET PO (09:05)
[2024-09-26] MEDS: Ibuprofen 400 MG TABLET PO (09:20)
[2024-09-26 16:02] VITALS: BP 132/75; PULSE 88; RESP 16; TEMP 36.9; O2SAT 95
[2024-09-26 20:00] VITALS: BP 129/83; PULSE 90; RESP 16; TEMP 36.6; O2SAT 100
[2024-09-26] MEDS: LORazepam 0.5 MG TABLET PO (20:22)
[2024-09-26] MEDS: traZODone HCL 50 MG TABLET PO ×2 (21:06→23:03)
[2024-09-26] MEDS: Mirtazapine 15 MG TABLET PO (21:06)
[2024-09-27 07:50] VITALS: BP 119/69; PULSE 70; RESP 16; TEMP 36.9; O2SAT 96
[2024-09-27] MEDS: Thiamine HCL 100 MG TABLET PO (08:37)
--- NOTE | 2024-09-27 09:15 | HO.PSYCHPN ---
Subjective Subjective Date of Service: 09/27/24 Reason For Visit: SI/HI Subjective Notes: 3 Day Interim History: laying in bed most of day. pt reports feeling a little anxious and depressed but just tired ; he reports he is still thinking about if I want to just leave or go to a program . denies SI/HI/VH/AH. denies withdrawal symptoms. Medication Compliance: Yes Side effects from medications: No Attending Groups: No Review of Systems Constitutional: Reports as per HPI Eyes: Reports as per HPI Reports as per HPI Cardiovascular: Reports as per HPI Respiratory: Reports as per HPI Gastrointestinal: Reports as per HPI Genitourinary: Reports as per HPI Musculoskeletal: Reports as per HPI Skin/Breast: Reports as per HPI Reports as per HPI Psychiatric: Reports as per HPI Endocrine: Reports as per HPI Hematologic/Lymphatic: Reports as per HPI Allergic/Immunologic: Reports as per HPI Mental Status Exam Mental Status Exam Narrative: Pt is alert and oriented; behavior is cooperative, guarded; dressed in casual attire; mood is described as a little anxious and depressed ; eye contact appropriate; Speech is normal rate, volume and prosody; thought process is organized; focused on discharge. denies SI/HI/VH/AH. Diagnostics Vital Signs (24Hr): Vital Signs - 24 hr 09/26/24 16:02 09/26/24 20:00 09/27/24 07:50 Temperature 98.4 F 97.8 F 98.5 F Pulse Rate 88 90 70 Respiratory Rate 16 16 16 Blood Pressure 132/75 129/83 119/69 Pulse Oximetry 95 100 96 Oxygen Delivery Method Room Air Room Air Room Air BMI result Body Mass Index 24.0 Labs 09/23/24 04:55 09/24/24 07:47 Medications Medications Current Medications Al Hydroxide/Mg Hydroxide (Magnesium Hydrox/Alum Hydrox 30 Ml Oral.Susp) 30 ml PO Q6H PRN PRN Reason: Heartburn/Nausea Hydroxyzine HCl (Hydroxyzine Hcl 25 Mg Tablet) 25 mg PO Q6H PRN PRN Reason: Anxiety Last Admin: 09/25/24 20:14 Dose: 25 mg Ibuprofen (Ibuprofen 400 Mg Tablet) 400 mg PO Q6H PRN PRN Reason: Pain, Moderate(Pain Scale 4-6) Last Admin: 09/26/24 09:20 Dose: 400 mg Lorazepam (Lorazepam 0.5 Mg Tablet) 0.5 mg PO DAILY PRN PRN Reason: Anxiety Stop: 09/28/24 07:00 Last Admin: 09/26/24 20:22 Dose: 0.5 mg Magnesium Hydroxide (Milk Of Magnesia 30 Ml Oral.Susp) 30 ml PO DAILY PRN PRN Reason: Constipation Mirtazapine (Mirtazapine 15 Mg Tablet) 15 mg PO BEDTIME PITO Last Admin: 09/26/24 21:06 Dose: 15 mg Nicotine (Nicotine 21 Mg Patch.Td24) 21 mg TRANSDERMA DAILY PRN PRN Reason: nicotine cravings Nicotine Polacrilex (Nicotine Polacrilex 2 Mg Gum) 2 mg BUCCAL Q2H PRN PRN Reason: Nicotine Cravings Last Admin: 09/25/24 20:06 Dose: 2 mg Thiamine HCl (Thiamine Hcl 100 Mg Tablet) 100 mg PO DAILY PITO Last Admin: 09/27/24 08:37 Dose: 100 mg Trazodone HCl (Trazodone Hcl 50 Mg Tablet) 50 mg PO BEDTIME MRX1 PRN PRN Reason: Insomnia Last Admin: 09/26/24 23:03 Dose: 50 mg Allergies Allergies Allergy/AdvReac Type Severity Reaction Status Date / Time No Known Allergies Allergy Verified 09/23/24 04:04 [No Known Allergies*] Assessment & Plan Assessment & Plan (1) Mood disorder: Status: Acute Code(s): F39 - Unspecified mood [affective] disorder (2) Cocaine use disorder, moderate, dependence: Status: Acute Code(s): F14.20 - Cocaine dependence, uncomplicated (3) Alcohol use disorder, moderate, dependence: Status: Acute Code(s): F10.20 - Alcohol dependence, uncomplicated Plan 09/24: Laying in bed. continues on CIWA. decline to meet with T/W d/t feeling tired . pt stated, I'm okay . nursing to monitor. 09/25: Observed pacing unit hallway. keeping to self. Pt reports feeling anxious and depressed today; reports increased anxiety d/t peer having outburst. denies SI/HI/VH/AH. Per nursing, slept 8 hours last night. Continues on CIWA. 09/26: denies withdrawal symptoms. CIWA DC'd. continue ativan taper. 09/27: continue current tx plan. Patient educated on: diagnosis and medication risk/benefits Reason for continued inpatient stay Substantial Risk for: med/psych decompensation Time Spent With Patient Time: Total time managing care of this patient today _20___ minutes.
[2024-09-27] MEDS: LORazepam 0.5 MG TABLET PO (13:24)
[2024-09-27 19:30] VITALS: BP 130/79; PULSE 85; RESP 18; TEMP 36.8; O2SAT 99
[2024-09-27] MEDS: traZODone HCL 50 MG TABLET PO ×2 (21:57→22:52)
[2024-09-27] MEDS: Mirtazapine 15 MG TABLET PO (21:57)
[2024-09-27] MEDS: Ibuprofen 400 MG TABLET PO (22:51)
[2024-09-27] MEDS: hydrOXYzine HCL 25 MG TABLET PO (22:52)
[2024-09-28 08:00] VITALS: BP 132/75; PULSE 74; RESP 18; TEMP 36.6; O2SAT 96
[2024-09-28] MEDS: Thiamine HCL 100 MG TABLET PO (09:18)
[2024-09-28] MEDS: Ibuprofen 400 MG TABLET PO ×3 (09:23→23:07)
[2024-09-28] MEDS: Nicotine Polacrilex 2 MG GUM BUCCAL (09:23)
[2024-09-28] MEDS: hydrOXYzine HCL 25 MG TABLET PO (09:23)
--- NOTE | 2024-09-28 16:32 | HO.PSYCHPN ---
Subjective Subjective Date of Service: 09/28/24 Reason For Visit: SI/HI Interim History: pleasant, cooperative. wants a program, hoping to skip rehab and go straight to sober house. will D/W [facility]. c/o anxiety. denies any withdrawal Sx. per staff, 3-day up 09/30. taking meds. depressed and anxious. taking ativan. irritable. TV. trazodone. sarcastic at times. Mental Status Exam Mental Status Exam Narrative: Pt is alert and oriented; behavior is cooperative, guarded; dressed in casual attire; mood is described as anxious; eye contact appropriate; Speech is normal rate, volume and prosody; thought process is organized; focused on discharge. no SI/HI/VH/AH expressed. Diagnostics Vital Signs (24Hr): Vital Signs - 24 hr 09/27/24 19:30 09/28/24 08:00 Temperature 98.3 F 97.8 F Pulse Rate 85 74 Respiratory Rate 18 18 Blood Pressure 130/79 132/75 Pulse Oximetry 99 96 Oxygen Delivery Method Room Air Room Air BMI result Body Mass Index 24.0 Labs 09/23/24 04:55 09/24/24 07:47 Medications Medications Current Medications Al Hydroxide/Mg Hydroxide (Magnesium Hydrox/Alum Hydrox 30 Ml Oral.Susp) 30 ml PO Q6H PRN PRN Reason: Heartburn/Nausea Hydroxyzine HCl (Hydroxyzine Hcl 25 Mg Tablet) 25 mg PO Q6H PRN PRN Reason: Anxiety Last Admin: 09/28/24 09:23 Dose: 25 mg Ibuprofen (Ibuprofen 400 Mg Tablet) 400 mg PO Q6H PRN PRN Reason: Pain, Moderate(Pain Scale 4-6) Last Admin: 09/28/24 16:15 Dose: 400 mg Magnesium Hydroxide (Milk Of Magnesia 30 Ml Oral.Susp) 30 ml PO DAILY PRN PRN Reason: Constipation Mirtazapine (Mirtazapine 30 Mg Tablet) 30 mg PO BEDTIME PITO Nicotine (Nicotine 21 Mg Patch.Td24) 21 mg TRANSDERMA DAILY PRN PRN Reason: nicotine cravings Nicotine Polacrilex (Nicotine Polacrilex 2 Mg Gum) 2 mg BUCCAL Q2H PRN PRN Reason: Nicotine Cravings Last Admin: 09/28/24 09:23 Dose: 2 mg Thiamine HCl (Thiamine Hcl 100 Mg Tablet) 100 mg PO DAILY PITO Last Admin: 09/28/24 09:18 Dose: 100 mg Allergies Allergies Allergy/AdvReac Type Severity Reaction Status Date / Time No Known Allergies Allergy Verified 09/23/24 04:04 [No Known Allergies*] Assessment & Plan Assessment & Plan (1) Mood disorder: Status: Acute Code(s): F39 - Unspecified mood [affective] disorder (2) Cocaine use disorder, moderate, dependence: Status: Acute Code(s): F14.20 - Cocaine dependence, uncomplicated (3) Alcohol use disorder, moderate, dependence: Status: Acute Code(s): F10.20 - Alcohol dependence, uncomplicated Plan 09/24: Laying in bed. continues on CIWA. decline to meet with T/W d/t feeling tired . pt stated, I'm okay . nursing to monitor. 09/25: Observed pacing unit hallway. keeping to self. Pt reports feeling anxious and depressed today; reports increased anxiety d/t peer having outburst. denies SI/HI/VH/AH. Per nursing, slept 8 hours last night. Continues on CIWA. 09/26: denies withdrawal symptoms. CIWA DC'd. continue ativan taper. 09/27: continue current tx plan. 09/28: denies w/drawal Sx aside from anxiety. interested in a ABE program, hoping to skip rehab and jump right to sober living. will D/W [facility]. continue current mgmt otherwise. Reason for continued inpatient stay Substantial Risk for: inability to function and rapid decompensation Time Spent With Patient Time: Total time managing care of this patient today __25__ minutes.
[2024-09-28 20:00] VITALS: BP 125/78; PULSE 80; RESP 16; TEMP 37.1; O2SAT 97
[2024-09-28] MEDS: Mirtazapine 30 MG TABLET PO (23:06)
[2024-09-29] MEDS: Thiamine HCL 100 MG TABLET PO (11:21)
[2024-09-29] MEDS: Ibuprofen 400 MG TABLET PO (17:54)
--- NOTE | 2024-09-29 18:03 | P.PNPSI_ITS ---
Subjective Subjective Date of Service: 09/29/24 Reason For Visit: SI/HI Interim History: calm, cooperative. states he would like to apply to [facility] and not discharge tomorrow. agrees to retract his 3-day notice. per staff, 3-day up tomorrow. irritable, rapid thoughts. Mental Status Exam Mental Status Exam Narrative: Pt is alert and oriented; behavior is cooperative, guarded; dressed in casual attire; mood is described as anxious; eye contact appropriate; Speech is normal rate, volume and prosody; thought process is organized; focused on dispo plan. no SI/HI/VH/AH expressed. Diagnostics Vital Signs (24Hr): Vital Signs - 24 hr 09/28/24 20:00 Temperature 98.8 F Pulse Rate 80 Respiratory Rate 16 Blood Pressure 125/78 Pulse Oximetry 97 Oxygen Delivery Method Room Air BMI result Body Mass Index 24.0 Labs 09/23/24 04:55 09/24/24 07:47 Medications Medications Current Medications Al Hydroxide/Mg Hydroxide (Magnesium Hydrox/Alum Hydrox 30 Ml Oral.Susp) 30 ml PO Q6H PRN PRN Reason: Heartburn/Nausea Hydroxyzine HCl (Hydroxyzine Hcl 25 Mg Tablet) 25 mg PO Q6H PRN PRN Reason: Anxiety Last Admin: 09/28/24 09:23 Dose: 25 mg Ibuprofen (Ibuprofen 400 Mg Tablet) 400 mg PO Q6H PRN PRN Reason: Pain, Moderate(Pain Scale 4-6) Last Admin: 09/29/24 17:54 Dose: 400 mg Magnesium Hydroxide (Milk Of Magnesia 30 Ml Oral.Susp) 30 ml PO DAILY PRN PRN Reason: Constipation Mirtazapine (Mirtazapine 30 Mg Tablet) 30 mg PO BEDTIME PITO Last Admin: 09/28/24 23:06 Dose: 30 mg Nicotine (Nicotine 21 Mg Patch.Td24) 21 mg TRANSDERMA DAILY PRN PRN Reason: nicotine cravings Nicotine Polacrilex (Nicotine Polacrilex 2 Mg Gum) 2 mg BUCCAL Q2H PRN PRN Reason: Nicotine Cravings Last Admin: 09/28/24 09:23 Dose: 2 mg Quetiapine Fumarate (Quetiapine Fumarate 25 Mg Tablet) 25 mg PO BEDTIME PITO Quetiapine Fumarate (Quetiapine Fumarate 25 Mg Tablet) 25 mg PO BEDTIME PRN PRN Reason: insomnia Thiamine HCl (Thiamine Hcl 100 Mg Tablet) 100 mg PO DAILY PITO Last Admin: 09/29/24 11:21 Dose: 100 mg Allergies Allergies Allergy/AdvReac Type Severity Reaction Status Date / Time No Known Allergies Allergy Verified 09/23/24 04:04 [No Known Allergies*] Assessment & Plan Assessment & Plan (1) Mood disorder: Status: Acute Code(s): F39 - Unspecified mood [affective] disorder (2) Cocaine use disorder, moderate, dependence: Status: Acute Code(s): F14.20 - Cocaine dependence, uncomplicated (3) Alcohol use disorder, moderate, dependence: Status: Acute Code(s): F10.20 - Alcohol dependence, uncomplicated Plan 09/24: Laying in bed. continues on CIWA. decline to meet with T/W d/t feeling tired . pt stated, I'm okay . nursing to monitor. 09/25: Observed pacing unit hallway. keeping to self. Pt reports feeling anxious and depressed today; reports increased anxiety d/t peer having outburst. denies SI/HI/VH/AH. Per nursing, slept 8 hours last night. Continues on CIWA. 09/26: denies withdrawal symptoms. CIWA DC'd. continue ativan taper. 09/27: continue current tx plan. 09/28: denies w/drawal Sx aside from anxiety. interested in a ABE program, hoping to skip rehab and jump right to sober living. will D/W [facility]. continue current mgmt otherwise. 09/29: pt retracted 3-day notice, will refer to [facility]. no medication changes. Reason for continued inpatient stay Substantial Risk for: rapid decompensation Time Spent With Patient Time: Total time managing care of this patient today __25__ minutes.
[2024-09-29 20:00] VITALS: BP 138/80; PULSE 81; RESP 16; TEMP 37.2; O2SAT 97
[2024-09-29] MEDS: Mirtazapine 30 MG TABLET PO (21:50)
[2024-09-29] MEDS: QUEtiapine Fumarate 25 MG TABLET PO (21:50)
[2024-09-30 07:44] VITALS: BP 127/77; PULSE 66; RESP 16; TEMP 36.8; O2SAT 95
[2024-09-30] MEDS: Ibuprofen 400 MG TABLET PO (09:17)
[2024-09-30] MEDS: Thiamine HCL 100 MG TABLET PO (09:18)
--- NOTE | 2024-09-30 12:19 | HO.PSYCHPN ---
Subjective Subjective Date of Service: 09/30/24 Reason For Visit: SI/HI Interim History: calm, pleasant, cooperative. sanguinely receives news of saturday discharge. has a room to return to, plans to continue to pursue rehabs/sober living once discharged. per staff, depressed and anxious. affect brighter. sleeping heavily. slept well overnight. Mental Status Exam Mental Status Exam Narrative: Pt is alert and oriented; behavior is cooperative, guarded; dressed in casual attire; mood is described as good; eye contact appropriate; Speech is normal rate, volume and prosody; thought process is organized; focused on dispo plan. affect is flexible, full range. no SI/HI/VH/AH. Diagnostics Vital Signs (24Hr): Vital Signs - 24 hr 09/29/24 20:00 09/30/24 07:44 Temperature 98.9 F 98.3 F Pulse Rate 81 66 Respiratory Rate 16 16 Blood Pressure 138/80 127/77 Pulse Oximetry 97 95 Oxygen Delivery Method Room Air Room Air BMI result Body Mass Index 24.0 Labs 09/23/24 04:55 09/24/24 07:47 Medications Medications Current Medications Al Hydroxide/Mg Hydroxide (Magnesium Hydrox/Alum Hydrox 30 Ml Oral.Susp) 30 ml PO Q6H PRN PRN Reason: Heartburn/Nausea Hydroxyzine HCl (Hydroxyzine Hcl 25 Mg Tablet) 25 mg PO Q6H PRN PRN Reason: Anxiety Last Admin: 09/28/24 09:23 Dose: 25 mg Ibuprofen (Ibuprofen 400 Mg Tablet) 400 mg PO Q6H PRN PRN Reason: Pain, Moderate(Pain Scale 4-6) Last Admin: 09/30/24 09:17 Dose: 400 mg Magnesium Hydroxide (Milk Of Magnesia 30 Ml Oral.Susp) 30 ml PO DAILY PRN PRN Reason: Constipation Mirtazapine (Mirtazapine 30 Mg Tablet) 30 mg PO BEDTIME PITO Last Admin: 09/29/24 21:50 Dose: 30 mg Nicotine (Nicotine 21 Mg Patch.Td24) 21 mg TRANSDERMA DAILY PRN PRN Reason: nicotine cravings Nicotine Polacrilex (Nicotine Polacrilex 2 Mg Gum) 2 mg BUCCAL Q2H PRN PRN Reason: Nicotine Cravings Last Admin: 09/28/24 09:23 Dose: 2 mg Quetiapine Fumarate (Quetiapine Fumarate 25 Mg Tablet) 25 mg PO BEDTIME [facility] Last Admin: 09/29/24 21:50 Dose: 25 mg Quetiapine Fumarate (Quetiapine Fumarate 25 Mg Tablet) 25 mg PO BEDTIME PRN PRN Reason: insomnia Thiamine HCl (Thiamine Hcl 100 Mg Tablet) 100 mg PO DAILY [facility] Last Admin: 09/30/24 09:18 Dose: 100 mg Allergies Allergies Allergy/AdvReac Type Severity Reaction Status Date / Time No Known Allergies Allergy Verified 09/23/24 04:04 [No Known Allergies*] Assessment & Plan Assessment & Plan (1) Mood disorder: Status: Acute Code(s): F39 - Unspecified mood [affective] disorder (2) Cocaine use disorder, moderate, dependence: Status: Acute Code(s): F14.20 - Cocaine dependence, uncomplicated (3) Alcohol use disorder, moderate, dependence: Status: Acute Code(s): F10.20 - Alcohol dependence, uncomplicated Plan 09/24: Laying in bed. continues on CIWA. decline to meet with T/W d/t feeling tired . pt stated, I'm okay . nursing to monitor. 09/25: Observed pacing unit hallway. keeping to self. Pt reports feeling anxious and depressed today; reports increased anxiety d/t peer having outburst. denies SI/HI/VH/AH. Per nursing, slept 8 hours last night. Continues on CIWA. 09/26: denies withdrawal symptoms. CIWA DC'd. continue ativan taper. 09/27: continue current tx plan. 09/28: denies w/drawal Sx aside from anxiety. interested in a ABE program, hoping to skip rehab and jump right to sober living. will D/W [facility]. continue current mgmt otherwise. 09/29: pt retracted 3-day notice, will refer to [facility]. no medication changes. 09/30: slept well, mood improved. no safety concerns. planning for saturday discharge. continue current mgmt. Reason for continued inpatient stay Substantial Risk for: inability to function and rapid decompensation Time Spent With Patient Time: Total time managing care of this patient today _25___ minutes.
--- NOTE | 2024-09-30 14:36 | PM.PSYDC ---
DS: Providers Provider Date of Service: 09/30/24 Date of admission: 09/23/24 11:44 Primary care physician: Unknown Physician DS: Diagnosis Discharge Diagnosis (1) Mood disorder: Status: Acute (2) Cocaine use disorder, moderate, dependence: Status: Acute (3) Alcohol use disorder, moderate, dependence: Status: Acute DS: Medications Discharge Medications Home Medications: Previous Rx's ?Medication ?Instructions ?Recorded mirtazapine 30 mg tablet 30 mg PO BEDTIME 30 days #30 tabs 09/30/24 quetiapine 25 mg tablet 12.5 mg (1/2 x 25 mg) PO BEDTIME 09/30/24 30 days #15 tabs Mental Status Exam Mental Status Exam Narrative: Pt is alert and oriented; behavior is cooperative, guarded; dressed in casual attire; mood is described as good; eye contact appropriate; Speech is normal rate, volume and prosody; thought process is organized; focused on dispo plan. affect is flexible, full range. no SI/HI/VH/AH. Data Data Completed and Pending Completed studies during hospitalization [Text1]: 09/23/24 09/24/24 04:55 07:47 Sodium 141 Potassium 4.4 Chloride 104 Carbon Dioxide 27 Anion Gap 14 BUN 18 H Creatinine 0.90 Estim Creat Clear Calc 104.7 Estimated GFR > 60 Fasting Glucose 100 H Estimat Average Glucose 117 Hemoglobin A1c % 5.7 Calcium 10.1 Ferritin 345 H Total Bilirubin 0.5 AST 43 H ALT 51 H Alkaline Phosphatase 88 Total Protein 7.6 Albumin 4.4 Triglycerides 69 Cholesterol 208 H LDL Cholesterol, Calc 125 H HDL Cholesterol 70 Vitamin B12 507 Folate 8.7 TSH 1.60 DS: Summary Time Spent with Patient Time attestation: Total time managing care of this patient today ____ minutes. Discharge Plan Discharge Anticipated Discharge Date/Time: 09/30/24 14:29 Patient Disposition: Home, Self-Care Discharge Diagnosis: Mood Disorder NOS Alcohol Use Disorder Cocaine Use Disorder Referrals: Therapy & Psychiatry [Other] - 1 Week (Please present to the clinic listed above, Saturday through Saturday between the hours of 10am and 12pm, to obtain outpatient mental health providers. ) Physician,Unknown J [Primary Care Provider] - 1 Week Discharge Medications: New quetiapine 25 mg Tablet 12.5 mg PO BEDTIME 30 Days Qty: 15 0RF mirtazapine 30 mg Tablet 30 mg PO BEDTIME 30 Days Qty: 30 0RF Discharge Orders: Discharge Order (Routine); Ordered 09/30/24 Ordered By: Mir Huang Diet: Advance to usual diet Activity on Discharge: As tolerated Stand Alone Forms: Patient Portal Discharge page Print Language: [place] Care Plan Goals: remain safe, stable, and sober in the outpatient treatment setting Health Concerns: none Plan of Treatment: take medications as prescribed, attend appointments as scheduled Assessment: not at imminent risk of harm to self or others
== END 2024-09-30 15:10 | disposition home or self-care (01) | DRG 751 ==
LOC: HO.ED 04:33 → HO.PADLT16 11:59
PROVIDERS: Emergency Medicine Emergency Medical Services; Admitting Provider Social Worker; Emergency Provider Emergency Medicine; Visit Provider Psychiatry & Neurology Psychiatry
DX: F39 Unspecified mood [affective] disorder (principal); Z59.02 Unsheltered homelessness; R45.851 Suicidal ideations; F10.20 Alcohol dependence, uncomplicated; F17.210 Nicotine dependence, cigarettes, uncomplicated; Y90.5 Blood alcohol level of 100-119 mg/100 ml; Z71.6 Tobacco abuse counseling; Z79.899 Other long term (current) drug therapy
CPT/HCPCS: 36415; 80048; 80053; 80061; 80076; 80307; 81001; 82607; 82728; 82746; 83036; 83735; 84443; 85025; 93005; 99285; S9485

== ENCOUNTER 2024-09-23 11:44 | Outpatient (BNV) | payer OTHER, SELFPAY | END 2024-09-23 12:22 | PROVIDERS: Admitting Provider Social Worker; Emergency Provider Emergency Medicine; Visit Provider Internal Medicine | DX: R45.851 Suicidal ideations (principal); F14.20 Cocaine dependence, uncomplicated; F10.20 Alcohol dependence, uncomplicated | CPT/HCPCS: 93010 ==

== ENCOUNTER → 2024-09-23 11:44 | Outpatient (BNV) | payer OTHER, SELFPAY | PROVIDERS: Admitting Provider Social Worker; Emergency Provider Emergency Medicine; Visit Provider Social Worker | DX: F39 Unspecified mood [affective] disorder (principal); F14.20 Cocaine dependence, uncomplicated; F10.20 Alcohol dependence, uncomplicated | CPT/HCPCS: 90792; 99231; 99232 ==

== ENCOUNTER 2025-01-06 05:09 | Emergency (ER) | payer OTHER, SELFPAY ==
--- NOTE | 2025-01-06 | ECG_ITS ---
Test Reason : rule out prolonged QTC Blood Pressure : */* mmHG Vent. Rate : 68 BPM Atrial Rate : 68 BPM P-R Int : 128 ms QRS Dur : 80 ms QT Int : 418 ms P-R-T Axes : 59 21 47 degrees QTcB Int : 444 ms Normal sinus rhythm Normal ECG When compared with ECG of 23-Sep-2024 12:22, No significant change was found Referred By: Janey Dumas Electronically Signed By: MONICA RAMOS
[2025-01-06 05:18] VITALS: BP 109/71; PULSE 101; RESP 101; RESP 18; TEMP 37; O2SAT 96; BMI 22.1
[2025-01-06 05:32] LABS: MANUAL DIFF FLAG NO
[2025-01-06 05:33] LABS: Basophils Absolute Auto 0.1 X10*3/uL (0.0-0.2); Basophils Percent Auto 0.9 % (0-2); Eosinophils Percent Auto 0.4 % (0-4); Hematocrit 43.4 % (42.0-52.0); Imm Gran Abs Auto 0.02 X10*3/uL (0.00-0.03); Imm Gran Pct Auto 0.2 % (0.0-0.4); Lymphocytes Absolute Auto 2.4 X10*3/uL (1.2-4.9); Lymphocytes Percent Auto 25.1 % (20-40); Mean Corpuscular HGB Conc 34.6 g/dl (31.0-36.0); Mean Corpuscular Hemoglobin 31.2 pg (27.0-33.0); Mean Corpuscular Volume 90.2 fL (80.0-98.0); Mean Platelet Volume 9.2 fL (9.4-12.4); Monocytes Absolute Auto 0.6 X10*3/uL (0.1-1.2); Neutrophils Absolute Auto 6.4 x10*3/uL (2.0-8.3); Neutrophils Percent Auto 67.4 % (45-73); Platelet Count 349 X10*3/uL (160-400); Red Blood Count 4.81 X10*6/uL (4.60-5.80); Red Cell Distribution Width 12.7 % (11.0-16.0); White Blood Count 9.5 X10*3/uL (4.8-10.8)
[2025-01-06 05:57] LABS: Alanine Aminotransferase 29 U/L (0-40); Albumin Level 4.5 g/dL (3.5-5.0); Alkaline Phosphatase 90 U/L (39-117); Anion Gap 15 (12-20); Aspartate Amino Transferase 38 U/L (5-37); Bilirubin Total 0.4 mg/dL (0.0-1.0); Blood Urea Nitrogen 15 mg/dL (9-16); Calcium 9.1 mg/dL (8.4-10.2); Carbon Dioxide 24 mmol/L (22-29); Chloride 106 mmol/L (96-108); Creatinine Clr Calc Pharmacy 103.8; Estimated Glomerular Filt Rate > 60; Ethanol 154 mg/dL; Glucose Random 88 mg/dL (60-115); Sodium 141 mmol/L (135-145); Total Protein 7.7 g/dL (6.5-8.0)
[2025-01-06 05:59] LABS: Appearance Urine Cloudy; Color Urine Yellow; Glucose Urine UA Negative (Negative); Leukocyte Esterase Urine Moderate (2+) (Negative); Nitrite Urine Negative (Negative); PH 5.5 (5.0-9.0); UMIC TRIGGER UACC YES; Urine Blood Large (3+) (Negative); Urine Ketones Trace mg/dL (Negative); Urine Protein 300 (3+) mg/dL (Neg-Trace)
[2025-01-06 06:06] LABS: Bacteria Urine None Seen (None Seen); Granular Casts Urine Present; Hyaline Casts Urine >20 /LPF (0-2); RBC Urine >20 /HPF (0-2); Squamous Epithelial Cell Urine 0-2 /HPF (0-2); UACC Culture Trigger YES; WBC Urine >50 /HPF (0-5)
--- NOTE | 2025-01-06 06:06 | MHC.EDTECH ---
belongings placed in locker 6
--- NOTE | 2025-01-06 06:11 | PC.NURSE ---
PT brought in from triage c/c of HI. PT providing limited information regarding what brought him in, but denies SI/HI to tw stating that he feels being now that he is in the POD. PT Being elusive with most assessment questions. pt did endorsing eto use 5 hours prior to coming in- drank some nips states he is not an active drinker, but does have a history of alcohol withdrawal but that was many years ago. PT persistent about getting food and drinks from tw and tech. Encouraged PT to wait as three patients brought back to the ED [id number]. PT standing at door way of bed 6 with arms crossed at this time. Diet order placed
[2025-01-06 06:13] LABS: Amphetamine Screen Urine Not Detected (Not Detect); Barbiturates, Urine Not Detected (Not Detect); Benzodiazepines Screen Urine Not Detected (Not Detect); Buprenorphine Scr Not Detected (Not Detect); Cannabinoid Screen Urine POSITIVE (Not Detect); Cocaine Screen Urine POSITIVE (Not Detect); Fentanyl, urine Not Detected (Not Detect); Methadone Screen, Urine Not Detected (Not Detect); Opiate Screen Urine Not Detected (Not Detect); Oxycodone Screen Urine Not Detected (Not Detect); Phencyclidine Screen Urine Not Detected (Not Detect)
--- NOTE | 2025-01-06 08:12 | ED_ITS ---
HPI - Psych General Chief Complaint: Psychiatric Symptoms Stated Complaint: crisis Time Seen by Provider: 01/06/25 05:56 Source: patient Mode of arrival: ambulatory Limitations: no limitations History of Present Illness ED Provider: Dr. Janey Dumas HPI Narrative: patient comes to the emergency room complaining vague HI, no specific details were given by the patient. Patient denies SI. Patient states that he has a lot of anger issues and would rather be here than in retirement. Patient admits to using drugs and alcohol. Patient did not disclose much information. Patient just saying that he is requesting help to deal with the addiction issues. Related Data Home Medications ?Medication ?Instructions ?Recorded ?Confirmed No Known Home Meds 01/06/25 01/06/25 Allergies Allergy/AdvReac Type Severity Reaction Status Date / Time No Known Allergies Allergy Verified 01/06/25 05:19 [No Known Allergies*] Review of Systems 2 Review of Systems: Constitutional : No Weight loss, No Fever, No Chills, No Night Sweats, No Fatigue, No Malaise ENT/Mouth : No Hearing loss, No Ear Pain, No Nasal Congestion, No Sinus Pain, No Hoarseness, No sore throat, No Rhinorrhea, No Swallowing Difficulty Eyes: No Eye Pain, No Swelling, No Redness, No Foreign Body, No Discharge, No Vision Changes Cardiovascular : No Chest Pain, No SOB, No Dyspnea on Exertion, No Orthopnea, No Edema, No Palpitations Respiratory : No Cough, No Sputum, No Wheezing, No Smoke Exposure, No Dyspnea Gastrointestinal : No Nausea, No Vomiting, No Diarrhea, No Constipation, No abdominal Pain, No Hematochezia, No Melena Genitourinary : no irregular bleeding, No Dysuria, No Urinary Frequency, No Hematuria, No Urinary Incontinence, No Urgency, No Flank Pain, No Urinary Flow Changes, No Hesitancy Musculoskeletal : No joint pain, No Myalgias, No Joint Swelling Skin : No Skin Lesions, No rash Neuro : No Weakness, No Numbness, No Paresthesias, No Loss of Consciousness, No Dizziness, No Headache Psych : No Anxiety/Panic, No Depression, Denies SI, complaining of vague HI with no details. Admits to drug use Heme/Lymph: No Bruising, No Bleeding,No Lymphadenopathy Endocrine : No Polyuria, No Polydipsia, No Temperature Intolerance PMFSH Past Medical History Medical History Active substance abuse Alcohol abuse Active substance abuse Heart murmur Social History Social History (Updated 09/23/24 @ 04:00 by Hazel Aceves DO) Household Members: None Housing: Homeless Alcohol intake: current Alcohol intake frequency: a few times a week Alcohol type: hard liquor and other Patient Tobacco Use Status: Current everyday Tobacco user Tobacco use type: Cigarette Cigarette Packs Per Day: 0.5 Cigarettes Per Day: 10.0 Years Smoked: 32 Smoked in Last 30 Days: Yes e-Cigarette/Vaping Use: Former Use Use of substances other than those prescribed or required for medical reasons: Yes Substance Use Type: Crack/Cocaine Advance Directives: No Do you have a plan to hurt others: No Plan service: No Sexual orientation: Straight/Heterosexual Physical Exam 2 Vital Signs: Vital Signs: Last Vital Signs Temp 98.6 F 01/06/25 05:18 Pulse 101 H 01/06/25 05:18 Resp 101 H 01/06/25 05:18 BP 109/71 01/06/25 05:18 Pulse Ox 96 01/06/25 05:18 O2 Del Method Room Air 01/06/25 05:18 BMI result Body Mass Index 22.1 Const: Other: Appearance: Alert. Oriented X3. No acute distress. Eyes: Pupils equal, round and reactive to light. ENT: Pharynx normal. Neck: Normal inspection. Neck supple. No lymph nodes noted. No crepitus CVS: Normal heart rate and rhythm. Pulses normal. Normal S1 and S2 Respiratory: No respiratory distress. Breath sounds normal. No Wheezing. No rales Abdomen: Soft and nontender. No rigidity. No distention. Skin: Skin warm and dry. Normal skin color. Normal skin turgor. Extremities: No lower extremity edema. No Lacerations. No Rash Neuro: Oriented X 3. No motor deficit. No sensory deficit. Moving all extremities. No slurred speech. CN 2 through 12 grossly intact Psych: calm, cooperative, normal affect Medical Decision Making Medical Decision Making MDM Narrative: my interpretation of labs: No hematology or chemistry abnormalities. Urinalysis as blood in the urine, leukocyte esterase, known nitrites. Patient did not complaining of any UTI symptoms, when asked if his abdomen hurts he says yes. Anything that I asked him if anything hurts he says yes. Very unreliable historian. Patient will be given empirically antibiotics. Patient had a similar looking urinalysis in August of 2024, no microbiology report available for sensitivity. physician observation started at 05:15 Differential Diagnosis Differential Diagnoses: The differential diagnosis associated with the presentation includes ( Anxiety, depression, polysubstance abuse, UTI) Admission/Observation Consideration of admission/observation: Escalation of care including admission/observation considered ( patient is under physician observation waiting to be seen by the care team) Lab Data MDM Lab Attestation statement: I reviewed the patient's lab results. 01/06/25 05:28 01/06/25 05:28 Labs: Lab Results 01/06/25 01/06/25 Range/Units 05:28 05:51 WBC 9.5 (4.8-10.8) X10*3/uL RBC 4.81 (4.60-5.80) X10*6/uL Hgb 15.0 (14.0-18.0) g/dl Hct 43.4 (42.0-52.0) % MCV 90.2 (80.0-98.0) fL MCH 31.2 (27.0-33.0) pg MCHC 34.6 (31.0-36.0) g/dl RDW 12.7 (11.0-16.0) % Plt Count 349 (160-400) X10*3/uL MPV 9.2 L (9.4-12.4) fL Immature Gran % (Auto) 0.2 (0.0-0.4) % Neut % (Auto) 67.4 (45-73) % Lymph % (Auto) 25.1 (20-40) % [place] % (Auto) 6.0 (2-11) % Eos % (Auto) 0.4 (0-4) % Baso % (Auto) 0.9 (0-2) % Lymph # (Auto) 2.4 (1.2-4.9) X10*3/uL [place] # (Auto) 0.6 (0.1-1.2) X10*3/uL Eos # (Auto) 0.0 (0.0-0.4) X10*3/uL Baso # (Auto) 0.1 (0.0-0.2) X10*3/uL Abs Immat Gran (auto) 0.02 (0.00-0.03) X10*3/uL Absolute Neuts (auto) 6.4 (2.0-8.3) x10*3/uL Absolute Nucleated RBC 0.000 (0.0-0.012) X10*3/uL Nucleated RBC % (auto) 0.0 (0.0-0.2) /100WBC Sodium 141 (135-145) mmol/L Potassium 4.0 (3.3-5.1) mmol/L Chloride 106 (96-108) mmol/L Carbon Dioxide 24 (22-29) mmol/L Anion Gap 15 (12-20) BUN 15 (9-16) mg/dL Creatinine 0.86 (0.5-1.4) mg/dL Estim Creat Clear Calc 103.8 Estimated GFR > 60 Random Glucose 88 (60-115) mg/dL Calcium 9.1 D (8.4-10.2) mg/dL Total Bilirubin 0.4 (0.0-1.0) mg/dL AST 38 H (5-37) U/L ALT 29 (0-40) U/L Alkaline Phosphatase 90 (39-117) U/L Total Protein 7.7 (6.5-8.0) g/dL Albumin 4.5 (3.5-5.0) g/dL Urine Color Yellow Urine Appearance Cloudy Urine pH 5.5 (5.0-9.0) Ur Specific [place] 1.020 (1.005-1.025) Urine Protein 300 (3+) H (Neg-Trace) mg/dL Urine Glucose (UA) Negative (Negative) mg/dL Urine Ketones Trace (Negative) mg/dL Urine Blood Large (3+) H (Negative) Urine Nitrite Negative (Negative) Ur Leukocyte Esterase Moderate (2+) H (Negative) Urine RBC >20 H (0-2) /HPF Urine WBC >50 H (0-5) /HPF Ur Squamous Epith Cells 0-2 (0-2) /HPF Urine Bacteria None Seen (None Seen) Hyaline Casts >20 (0-2) /LPF Granular Casts Present Urine Opiates Screen Not Detected (Not Detect) Ur Buprenorphine Scrn Not Detected (Not Detect) ng/mL Ur Oxycodone Screen Not Detected (Not Detect) ng/mL Urine Methadone Screen Not Detected (Not Detect) ng/mL Urine Fentanyl Screen Not Detected (Not Detect) Ur Barbiturates Screen Not Detected (Not Detect) Ur Phencyclidine Scrn Not Detected (Not Detect) Ur Amphetamines Screen Not Detected (Not Detect) U Benzodiazepines Scrn Not Detected (Not Detect) Urine Cocaine Screen POSITIVE H (Not Detect) U Marijuana (THC) Screen POSITIVE H (Not Detect) Ethyl Alcohol 154 mg/dL Critical Care Time Critical Care Time Critical Care Time: Yes Total Critical Care Time: 35 Attestation: I have personally provided critical care time. Time includes review of lab data, radiology results, discussion with consultants, and monitoring for potential decompensation. Intervention performed as documented. Discharge Plan Discharge Clinical Impression: Mood disorder, Polysubstance abuse Patient Disposition: Still a Patient Prescriptions: No Action No Known Home Meds Interventions: [place]-Suicide Risk Severity Scale Last Done: 01/06/25 07:01 Print Language: Slovak
--- NOTE | 2025-01-06 10:01 | PC.NURSE ---
Assumed care of patient at 0645, patient has been sleeping the majority of the morning, refused his am Ceftin. Patient is now resting comfortably, respirations even and unlabored. Continue plan of care for CARE team assessment
--- NOTE | 2025-01-06 13:07 | MHC.CARE ---
Patient evaluated by the CARE Team, disposition Dual Diagnosis inpatient. ED provider Dr. Diana updated
[2025-01-06 14:00] VITALS: BP 119/78; PULSE 75; RESP 14; TEMP 36.6; O2SAT 98
--- NOTE | 2025-01-06 14:40 | MHC.CARE ---
Pt has been accepted to [facility], [address] [facility] [place] [address], Accepting is Dr. Eubanks, ETA 6pm, no n2n required
--- NOTE | 2025-01-06 16:05 | PHA.MEDREC ---
Pharmacy Consult ? Medication Reconciliation Pharmacy reviewed med rec done by nursing. No Known Home Meds confirmed, claims match.
[2025-01-06 18:29] VITALS: BP 109/87; PULSE 84; RESP 16; TEMP 36.7; O2SAT 96
== END 2025-01-06 18:33 | disposition short-term general hospital (02) ==
PROVIDERS: Emergency Provider Emergency Medicine
DX: F14.14 Cocaine abuse with cocaine-induced mood disorder (principal); F17.210 Nicotine dependence, cigarettes, uncomplicated; Z51.81 Encounter for therapeutic drug level monitoring; Z79.899 Other long term (current) drug therapy
CPT/HCPCS: 36415; 80053; 80307; 81001; 85025; 87086; 93005; 99285; S9485

== ENCOUNTER → 2025-01-06 15:11 | Outpatient (BNV) | payer OTHER, SELFPAY | PROVIDERS: Emergency Provider Emergency Medicine; Visit Provider Internal Medicine | DX: F19.10 Other psychoactive substance abuse, uncomplicated (principal); F39 Unspecified mood [affective] disorder | CPT/HCPCS: 93010 ==

== ENCOUNTER 2025-07-06 00:17 | Emergency (ER) | payer OTHER, SELFPAY ==
--- NOTE | ~2025-07-06 | XR_ITS ---
CLINICAL HISTORY: cp 1 view chest x-ray Comparison: None provided Findings: The lungs are clear. Heart size is normal. No acute fracture. IMPRESSION: 1. No acute findings. This document has been electronically signed by: Stephen Oquendo MD on 07/06/2025 01:20:26
[2025-07-06 00:26] VITALS: BP 144/94; PULSE 100; O2SAT 98; BMI 26.0
--- NOTE | 2025-07-06 00:29 | ED.AMS ---
HPI - Altered Mental Status General Chief Complaint: ETOH/Substance Use Stated Complaint: FALL/OVERDOSE Time Seen by Provider: 07/06/25 00:19 History of Present Illness HPI narrative: Patient is a 49-year-old male. He has sniffed some unknown substance. Subsequently was found unresponsive. After the patient was given Narcan he woke up. No fever no chills no chest pain. No diaphoresis. Patient from home. Related Data Home Medications ?Medication ?Instructions ?Recorded ?Confirmed No Known Home Meds 01/06/25 01/06/25 Allergies Allergy/AdvReac Type Severity Reaction Status Date / Time No Known Allergies (No Known Allergy Verified 07/06/25 00:29 Allergies*) Review of Systems Review of Systems: Positive chest pain the same spot where he received a sternal rub PMFSH Past Medical History Attestation statement: The following information was validated with the patient. Medical History Active substance abuse Alcohol abuse Active substance abuse Heart murmur Social History Social History Household Members: None Housing: Homeless Alcohol intake: current Alcohol intake frequency: a few times a week Alcohol type: hard liquor and other Patient Tobacco Use Status: Current everyday Tobacco user Tobacco use type: Cigarette Cigarette Packs Per Day: 0.5 Cigarettes Per Day: 10.0 Years Smoked: 32 e-Cigarette/Vaping Use: Former Use Substance Use Type: Crack/Cocaine Do you have a plan to hurt others: No Plan service: No Sexual orientation: Straight/Heterosexual Physical Exam ED Exam Exam: Appearance: Alert. Oriented X3. No acute distress. Eyes: Pupils equal, round and reactive to light. ENT: Pharynx normal. Neck: Normal inspection. Neck supple. No lymph nodes noted. No crepitus CVS: Normal heart rate and rhythm. Pulses normal. Normal S1 and S2 Respiratory: No respiratory distress. Breath sounds normal. No Wheezing. No rales Abdomen: Soft and nontender. No rigidity. No distention. good BS x4 Skin: Skin warm and dry. Normal skin color. Normal skin turgor. Extremities: No lower extremity edema. Neurovascular intact to all extremities. No Lacerations. No Rash Neuro: Oriented X 3. No motor deficit. No sensory deficit. Moving all extermities. No slurred speech Vital Signs: BMI result Body Mass Index 26.0 Medical Decision Making Medical Decision Making MDM Narrative: Well-appearing no acute distress at this time. Patient woke up after the Narcan. Explained to patient the need to be monitored for 2 hours. At this time patient does not want detox. Patient was given take-home Narcan. In stable condition will monitor for 2 hours. Patient's chest x-ray by my interpretation is grossly negative. Differential Diagnosis Differential Diagnoses: The differential diagnosis associated with the presentation includes Narcotic overdose Admission/Observation Consideration of admission/observation: Escalation of care including admission/observation considered Independent Interpretation I performed an independent interpretation of an: Plain X-Ray (Chest x-ray negative) Radiology Impression Discussion of test interpretation with radiology: I have reviewed the radiologist's reading. External Record Review ems record Chronic Conditions History of polysubstance abuse history of mood disorder Social Determinants Patient?s care significantly limited by Social Determinants of Health including: Low income, Alcoholism and drug addiction in family, Problems related to primary support group and Unemployment Discharge Plan Discharge Clinical Impression: Narcotic drug use Patient Disposition: Home, Self-Care Instructions: Narcotic Use Disorder (ED) Prescriptions: No Action No Known Home Meds Print Language: Zimbabwean
--- NOTE | 2025-07-06 00:50 | PC.NURSE ---
Addendum entered by Madelin Villeda RN 07/06/25 01:49: pt prior to discharge now endorsing si w/ plan, pt states he doesnt feel safe leaving and would like to see care team Original Note: pt changed over into hospital attire. belongings search and secured by Security, placed on shelf [address] [facility]
[2025-07-06 03:14] LABS: MANUAL DIFF FLAG NO
[2025-07-06 03:15] LABS: Hematocrit 42.2 % (42.0-52.0); Hemoglobin 14.8 g/dl (14.0-18.0); Imm Gran Abs Auto 0.10 X10*3/uL (0.00-0.03); Imm Gran Pct Auto 0.6 % (0.0-0.4); Lymphocytes Absolute Auto 0.9 X10*3/uL (1.2-4.9); Mean Corpuscular HGB Conc 35.1 g/dl (31.0-36.0); Mean Corpuscular Hemoglobin 30.5 pg (27.0-33.0); Mean Corpuscular Volume 86.8 fL (80.0-98.0); NRBC Abs Auto 0.000 X10*3/uL (0.0-0.012); NRBC Pct Auto 0.0 /100WBC (0.0-0.2); Platelet Count 313 X10*3/uL (160-400); Red Blood Count 4.86 X10*6/uL (4.60-5.80); White Blood Count 17.1 X10*3/uL (4.8-10.8)
[2025-07-06 03:30] LABS: Alanine Aminotransferase 31 U/L (0-40); Albumin Level 4.5 g/dL (3.5-5.0); Alkaline Phosphatase 87 U/L (39-117); Anion Gap 19 (12-20); Aspartate Amino Transferase 36 U/L (5-37); Blood Urea Nitrogen 12 mg/dL (9-16); Calcium 8.5 mg/dL (8.4-10.2); Carbon Dioxide 21 mmol/L (22-29); Chloride 105 mmol/L (96-108); Creatinine Clr Calc Pharmacy 101.3; Estimated Glomerular Filt Rate > 60; Potassium 3.7 mmol/L (3.3-5.1); Sodium 141 mmol/L (135-145); Total Protein 7.1 g/dL (6.5-8.0)
--- OUTSIDE RECORDS SUMMARY | 2025-07-06 03:40 | XMS_ITS | Patient Health Record ---
Author Organization [facility] Address [address] [place] [address] Care Team Providers Care Production Line Operator Name Role Phone NO, PCP Primary Care Provider Nely Torres Unavailable [phone] Reason For Referral No Information Medications Medication SIG (Take, Route, Fr equency, Duration) Notes Start Date End Date Status Seroquel 50 mg 2 tabs orally qhs 10/28/2024 Active PROzac 20 mg 1 cap(s) orally once a day 10/28/2024 Active Social History Sex Assigned At : Social History Observation Description Sex Assigned At Male Problems Problem Type SNOMED Code ICD Code Onset Dates Problem Status W/U Status Risk Notes Problem Nondependent alcohol abuse in remission (900164460) Alcohol abuse, in remission (305.03) Active confirmed Problem Tobacco use (279906011) Tobacco use disorder (305.1) Active confirmed Problem Posttraumatic stress disorder (84613592) PTSD (Posttraumatic stress disorder) (NOS) (309.81) Active confirmed Problem Depressive disorder (81297064) Depressive Disorder NOS (311) Active confirmed Encounters Encounter Location Date Provider Diagnosis [facility] [address] [place] [phone] 06/22/2025 Nely Torres [facility] [phone] 06/16/2025 Nely Torres Plan Of Treatment Next Appt Details Provider Name:Nely Agosto, 07/06/2025 09:30:00 AM, [facility], [address] [place] [address], [phone], Insurance Providers Payer Name Payer Address Payer Phone Subscriber Number Group Number Insured Name Patient Relationship to Insured Coverage Start Date Coverage End Date [place] [address] [place] [address] [phone] [id number] Jared Malave Self - patient is the insured [address] [place] [phone] Jarde Malave Self - patient is the insured 5 Medical (General) History Medical History History ICD Code Heart murmer, depression, PTSD
[2025-07-06 04:03] LABS: Cannabinoid Screen Urine POSITIVE (Not Detect)
[2025-07-06 05:58] VITALS: BP 110/61; PULSE 65; RESP 16; TEMP 36.2; O2SAT 97
[2025-07-06 10:10] VITALS: BP 111/69; PULSE 62; RESP 14; TEMP 36.2; O2SAT 98
--- NOTE | 2025-07-06 16:18 | PC.NURSE ---
Pt reported to have originally refused referrals and detox, now stating he may want to go and states he is going back and forth with making decision. notified.
[2025-07-06 17:08] VITALS: BP 111/69; PULSE 62; RESP 14; TEMP 36.2; O2SAT 98
== END 2025-07-06 17:09 | disposition home or self-care (01) ==
PROVIDERS: Emergency Provider Emergency Medicine Emergency Medical Services
DX: R40.4 Transient alteration of awareness (principal); R45.851 Suicidal ideations; F17.210 Nicotine dependence, cigarettes, uncomplicated; F14.90 Cocaine use, unspecified, uncomplicated; Z51.81 Encounter for therapeutic drug level monitoring; Z79.899 Other long term (current) drug therapy
CPT/HCPCS: 36415; 71045; 80053; 80307; 85025; 99284; S9485

== ENCOUNTER → 2025-07-06 00:27 | Outpatient (BNV) | payer OTHER, SELFPAY | PROVIDERS: Emergency Provider Emergency Medicine Emergency Medical Services; Visit Provider Radiology Diagnostic Radiology | DX: R07.9 Chest pain, unspecified (principal) | CPT/HCPCS: 71045 ==

== ENCOUNTER 2025-07-13 06:31 | Emergency (ER) | payer OTHER, SELFPAY ==
--- OUTSIDE RECORDS SUMMARY | 2025-07-06 05:30 | XMS_ITS ---
Author Organization [facility] Address [address] [place] [address] Care Team Providers Care Trench Trimmer Fine Name Role Phone NO, PCP Primary Care Provider Nely Torres Unavailable REASON FOR VISIT housing Social History Sex Assigned At : Social History Observation Description Sex Assigned At Male Encounters Encounter Location Date Provider Diagnosis [facility] [address] [place] [phone] 07/06/2025 Nely Torres Plan Of Treatment No Information Progress Notes * Jared RUDOLPHDOB:1 12/26/1974 (49 yo M)Acc No.[id number]:07/06/2025 Case Management Patient: Jared FAUST Provider: Georgette Torres :1975 A ge:49 Y S ex:Male Date:07/06/2025 Address:[address] [place], [place] [phone] Pcp:PCP NO Subjective: * Chief Complaints: * 1 . Housing. * Medical History: Objective: Assessment: Plan: * Treatment: * Images: Billing Information: * Visit Code: * Procedure Codes: Care Plan Details* * Electronic signature of Adrián Torres on 07/13/2025 at 10:46 AM EDT Sign off status: Pending * Provider: Georgette Torres Date: 0 07/06/2025 Generated for Dioi ng/Faxing/eTransmitting on: 0 07/13/2025 10:46 AM EDT
--- OUTSIDE RECORDS SUMMARY | 2025-07-10 17:00 | XMS_ITS ---
Author Organization [facility] Address [address] [place] [id number] Care Team Providers Care Retail Pharmacy Merchandiser Name Role Phone NO, PCP Primary Care Provider Nely Torres Unavailable Migration, Provider Unavailable Unavailable REASON FOR VISIT Multum To Medispan Conversion Encounter Medications Medication SIG (Take, Route, Fr equency, Duration) Notes Start Date End Date Status PROzac 20 MG 1 cap(s) orally once a day 10/28/2024 Active SEROquel 50 MG 2 tabs orally qhs 10/28/2024 Active Social History Sex Assigned At : Social History Observation Description Sex Assigned At Male Encounters Encounter Location Date Provider Diagnosis [address] [phone] 07/10/2025 Provider Migration Depressive Disorder NOS 311 Assessments Encounter Date Diagnosis (ICD Code) Assessment Notes Treatment Notes Treatment Clinical Notes Section Notes 07/10/2025 Depressive Disorder NOS (ICD9-CM - 311) Plan Of Treatment Medication Medication Name Sig Start Date Stop Date Notes PROzac 20 MG 1 cap(s) orally once a day 10/28/2024 SEROquel 50 MG 2 tabs orally qhs 10/28/2024 Progress Notes * Jared RUDOLPH SeDOB:1 12/26/1974 (49 yo M)Acc No.[id number]:07/10/2025 Patient: Jared FAUST Provider: :1975 A ge:49 Y S ex:Male Date:07/10/2025 Address:[address] [place] [address] Pcp:PCP NO Subjective: * Chief Complaints: * 1 . Multum To Medispan Conversion Encounter. * Medical History: Objective: * Vitals: Assessment: * Assessment: 1. D epressive Disorder NOS - 311 Plan: * Treatment: * Images: Billing Information: * Visit Code: * Procedure Codes: * Electronic signature of Prov ider Migration on 07/13/2025 at 10:47 AM EDT Sign off status: Pending * Provider: Date: 07/10/2025 Generated for Lisa barnett/Becki/Matthew on: 07/13/2025 10:47 AM EDT
[2025-07-13 06:46] VITALS: BP 158/100; PULSE 88; O2SAT 98
[2025-07-13 06:48] VITALS: BP 125/82; PULSE 82; RESP 27; TEMP 36.8; O2SAT 98; BMI 24.4
--- NOTE | 2025-07-13 06:54 | ED_ITS ---
HPI - Psych General Chief Complaint: ETOH/Substance Use Stated Complaint: si Time Seen by Provider: 07/13/25 06:34 Source: patient, EMS and old records reviewed Mode of arrival: EMS Limitations: no limitations History of Present Illness ED Provider: SVETLANA FLYNN Narrative: 49 yo male with PMH of ETOH use, disorder, cocaine abuse here with c/o SI and using cocaine. He has no plan. He denies medical complaints or trauma. He states his housing situation is making him crazier. He states he'd be better off . He was just seen here for similar complaints but referred to outpatient detox. It looks like he was not able to go. MD complaint: suicidal ideation and feels depressed Onset (ago): week(s) Duration: intermittent History of same: Yes Relieving factors: none Exacerbating factors: drug use Context: recent drug abuse and significant life stressor Associated psychiatric symptoms: depression and suicidal ideation Associated symptoms: denies other symptoms Treatments prior to arrival: none Related Data Home Medications ?Medication ?Instructions ?Recorded ?Confirmed No Known Home Meds 01/06/25 07/13/25 Allergies Allergy/AdvReac Type Severity Reaction Status Date / Time No Known Allergies (No Known Allergy Verified 07/13/25 06:49 Allergies*) Review of Systems 2 Review of Systems: Constitutional : No Fever, No Chills ENT/Mouth : No Ear Pain, No Nasal Congestion, No sore throat Eyes: No Eye Pain, No Swelling, No Redness Cardiovascular : No Chest Pain, No SOB Respiratory : No Cough, No Sputum, No Dyspnea Gastrointestinal : No Nausea, No Vomiting, No Diarrhea, No Hematochezia, No Melena Genitourinary : No Dysuria, No Urinary Frequency, No Hematuria Musculoskeletal : No Myalgias Skin : No Skin Lesions, No rash Neuro : No Weakness, No Numbness, No Paresthesias, No Dizziness, No Headache Psych : positive Anxiety, positive Depression, positive SI no HI All other systems reviewed and are negative PMFSH Past Medical History Attestation statement: The following information was validated with the patient. Source: old records reviewed Medical History Active substance abuse Alcohol abuse Active substance abuse Heart murmur Social History Social History Household Members: None Housing: Homeless Alcohol intake: current Alcohol intake frequency: a few times a week Alcohol type: hard liquor and other Patient Tobacco Use Status: Current everyday Tobacco user Tobacco use type: Cigarette Cigarette Packs Per Day: 0.5 Cigarettes Per Day: 10.0 Years Smoked: 32 Smoked in Last 30 Days: No e-Cigarette/Vaping Use: Former Use Substance Use Type: Crack/Cocaine Advance Directives: No Advance Directives Information Provided: Yes Do you have a plan to hurt others: No Plan service: No Sexual orientation: Straight/Heterosexual Physical Exam 2 Vital Signs: Vital Signs: Last Vital Signs Temp 99.0 F 07/13/25 19:21 Pulse 58 07/13/25 19:21 Resp 16 07/13/25 19:21 BP 133/69 07/13/25 19:21 Pulse Ox 97 07/13/25 19:21 O2 Del Method Room Air 07/13/25 19:21 BMI result Body Mass Index 24.4 Appearance: Alert. Oriented X3. No acute distress. Eyes: Pupils equal, round and reactive to light. ENT: Pharynx normal. Neck: Normal inspection. Neck supple. CVS: Normal heart rate and rhythm. Pulses normal. Respiratory: No respiratory distress. Breath sounds normal. Abdomen: Soft and nontender. Skin: Skin warm and dry. Normal skin color. Normal skin turgor. Extremities: No lower extremity edema. No calf ttp Neuro: Oriented X 3. No motor deficit. No sensory deficit. CN2-12 intact Course Course Course Narrative: he has no urinary symptoms, he has no bacteria and his WBC count is chronically elevated his last urine with similar findings had neg culture Reevaluation(s) Reevaluation #1: Time: 19: Date: 07/13/25 Provider: Hazel Aceves DO Physician observation ended at 1920. Patient to be admitted as inpatient to psychiatry at [facility]. Medical Decision Making Medical Decision Making MDM Narrative: 49 yo male with PMH of ETOH use, disorder, cocaine abuse here with c/o SI due to living arrangements. He has no plan. He denies medical issues or concerns. He denies trauma. He will need labs and CARE team consult. Differential Diagnosis Differential Diagnoses: The differential diagnosis associated with the presentation includes cocaine abuse, poor social support, SI Admission/Observation Consideration of admission/observation: Escalation of care including admission/observation considered physician observation started at 7am pending CARE team Consult Healthcare Provider Management of the patient was discussed with: Behavioral Health Provider Lab Data [facility] Lab Attestation statement: I reviewed the patient's lab results. 07/13/25 07:15 07/13/25 07:15 Labs: Lab Results 07/13/25 Range/Units 07:15 WBC 14.8 H (4.8-10.8) X10*3/uL RBC 4.68 (4.60-5.80) X10*6/uL Hgb 14.3 (14.0-18.0) g/dl Hct 41.1 L (42.0-52.0) % MCV 87.8 (80.0-98.0) fL MCH 30.6 (27.0-33.0) pg MCHC 34.8 (31.0-36.0) g/dl RDW 13.3 (11.0-16.0) % Plt Count 327 (160-400) X10*3/uL MPV 9.1 L (9.4-12.4) fL Immature Gran % (Auto) 0.5 H (0.0-0.4) % Neut % (Auto) 79.7 H (45-73) % Lymph % (Auto) 12.7 L (20-40) % [place] % (Auto) 6.5 (2-11) % Eos % (Auto) 0.1 (0-4) % Baso % (Auto) 0.5 (0-2) % Lymph # (Auto) 1.9 (1.2-4.9) X10*3/uL [place] # (Auto) 1.0 (0.1-1.2) X10*3/uL Eos # (Auto) 0.0 (0.0-0.4) X10*3/uL Baso # (Auto) 0.1 (0.0-0.2) X10*3/uL Abs Immat Gran (auto) 0.07 H (0.00-0.03) X10*3/uL Absolute Neuts (auto) 11.8 H (2.0-8.3) x10*3/uL Absolute Nucleated RBC 0.000 (0.0-0.012) X10*3/uL Nucleated RBC % (auto) 0.0 (0.0-0.2) /100WBC Sodium 140 (135-145) mmol/L Potassium 3.9 (3.3-5.1) mmol/L Chloride 105 (96-108) mmol/L Carbon Dioxide 25 (22-29) mmol/L Anion Gap 14 (12-20) BUN 16 (9-16) mg/dL Creatinine 0.98 (0.5-1.4) mg/dL Estim Creat Clear Calc 95.1 Estimated GFR > 60 Random Glucose 93 (60-115) mg/dL Calcium 9.3 D (8.4-10.2) mg/dL Magnesium 2.0 (1.6-2.6) mg/dL Total Bilirubin 0.5 (0.0-1.0) mg/dL Direct Bilirubin 0.2 (0.0-0.5) mg/dL AST 31 (5-37) U/L ALT 22 (0-40) U/L Alkaline Phosphatase 94 (39-117) U/L Total Protein 7.4 (6.5-8.0) g/dL Albumin 4.6 (3.5-5.0) g/dL Urine Color Dark Yellow Urine Appearance Cloudy Urine pH 5.5 (5.0-9.0) Ur Specific Red [place] 1.025 (1.005-1.025) Urine Protein 300 (3+) H (Neg-Trace) mg/dL Urine Glucose (UA) Negative (Negative) mg/dL Urine Ketones Trace (Negative) mg/dL Urine Blood Large (3+) H (Negative) Urine Nitrite Negative (Negative) Ur Leukocyte Esterase Moderate (2+) H (Negative) Urine RBC >20 H (0-2) /HPF Urine WBC >50 H (0-5) /HPF Ur Squamous Epith Cells 0-2 (0-2) /HPF Urine Bacteria None Seen (None Seen) Hyaline Casts 11-20 (0-2) /LPF Urine Opiates Screen Not Detected (Not Detect) Ur Buprenorphine Scrn Not Detected (Not Detect) ng/mL Ur Oxycodone Screen Not Detected (Not Detect) ng/mL Urine Methadone Screen Not Detected (Not Detect) ng/mL Urine Fentanyl Screen POSITIVE H (Not Detect) Ur Barbiturates Screen Not Detected (Not Detect) Ur Phencyclidine Scrn Not Detected (Not Detect) Ur Amphetamines Screen Not Detected (Not Detect) U Benzodiazepines Scrn Not Detected (Not Detect) Urine Cocaine Screen POSITIVE H (Not Detect) U Marijuana (THC) Screen POSITIVE H (Not Detect) Ethyl Alcohol < 10 mg/dL Independent Historian Clinical information obtained from an independent historian. History obtained from or confirmed by: EMS External Record Review External record reviewed: Outpatient record Social Determinants Patient?s care significantly limited by Social Determinants of Health including: Problems related to primary support group Discharge Plan Discharge Clinical Impression: Cocaine use disorder, moderate, dependence, Hallucination, Suicidal ideation Patient Disposition: Xfer Psychiatric Hosp Transfer Details: [facility] Prescriptions: No Action No Known Home Meds Interventions: Acute Care Transfer Worksheet (ED) Last Done: 07/13/25 19:21 Discharge Date/Time: 07/13/25 19:47 Print Language: Mohawk
[2025-07-13 07:21] LABS: MANUAL DIFF FLAG NO
[2025-07-13 07:23] LABS: Hematocrit 41.1 % (42.0-52.0); Hemoglobin 14.3 g/dl (14.0-18.0); Imm Gran Abs Auto 0.07 X10*3/uL (0.00-0.03); Imm Gran Pct Auto 0.5 % (0.0-0.4); Lymphocytes Absolute Auto 1.9 X10*3/uL (1.2-4.9); Mean Corpuscular HGB Conc 34.8 g/dl (31.0-36.0); Mean Corpuscular Hemoglobin 30.6 pg (27.0-33.0); Mean Corpuscular Volume 87.8 fL (80.0-98.0); NRBC Abs Auto 0.000 X10*3/uL (0.0-0.012); NRBC Pct Auto 0.0 /100WBC (0.0-0.2); Platelet Count 327 X10*3/uL (160-400); Red Blood Count 4.68 X10*6/uL (4.60-5.80); White Blood Count 14.8 X10*3/uL (4.8-10.8)
[2025-07-13 07:27] LABS: Appearance Urine Cloudy; Glucose Urine UA Negative (Negative); PH 5.5 (5.0-9.0); Specific Gravity - Urine 1.025 (1.005-1.025); UMIC TRIGGER UACC YES
[2025-07-13 07:32] LABS: Cannabinoid Screen Urine POSITIVE (Not Detect)
[2025-07-13 07:40] LABS: Alanine Aminotransferase 22 U/L (0-40); Albumin Level 4.6 g/dL (3.5-5.0); Alkaline Phosphatase 94 U/L (39-117); Anion Gap 14 (12-20); Aspartate Amino Transferase 31 U/L (5-37); Blood Urea Nitrogen 16 mg/dL (9-16); Calcium 9.3 mg/dL (8.4-10.2); Carbon Dioxide 25 mmol/L (22-29); Chloride 105 mmol/L (96-108); Creatinine Clr Calc Pharmacy 95.1; Estimated Glomerular Filt Rate > 60; Magnesium 2.0 mg/dL (1.6-2.6); Potassium 3.9 mmol/L (3.3-5.1); Sodium 140 mmol/L (135-145); Total Protein 7.4 g/dL (6.5-8.0)
[2025-07-13 07:42] LABS: UACC Culture Trigger YES
[2025-07-13 08:15] VITALS: BP 120/77; PULSE 78; RESP 20; TEMP 37.1; O2SAT 98
--- NOTE | 2025-07-13 08:52 | PC.NURSE ---
Pt resting quietly. NAD. calm and cooperative. has been changed over. sitter at bedside. c/o left flank pain worse with movement but not bad . skin PWD. no resp depression
--- OUTSIDE RECORDS SUMMARY | 2025-07-13 10:47 | XMS_ITS | Patient Health Record ---
Author Organization [facility] Address [address] [place] [address] Care Team Providers Care Email Marketing Specialist Name Role Phone NO, PCP Primary Care Provider [phone] Nely Torres Unavailable Migration, Provider Unavailable Unavailable Reason For Referral No Information Medications Medication [...] Notes Problem Nondependent alcohol abuse in remission (720828191) Alcohol abuse, in remission (305.03) Active confirmed Problem Tobacco use (618807837) Tobacco use disorder (305.1) Active confirmed Problem Posttraumatic stress disorder (58056028) PTSD (Posttraumatic stress disorder) (NOS) (309.81) Active confirmed Problem Depressive disorder (03744709) Depressive Disorder NOS (311) Active confirmed Encounters Encounter Location Date Provider Diagnosis [facility] [address] [place] [address] [phone] 06/22/2025 Nely Torres [facility] [address] [place] [address] [phone] 06/16/2025 Nely Torres [facility] [address] [place] [address] 07/10/2025 Provider Migration Depressive Disorder NOS 311 Assessments Encounter Date Diagnosis (ICD Code) Assessment Notes Treatment Notes Treatment Clinical Notes Section Notes 07/10/2025 Depressive Disorder NOS (ICD9-CM - 311) Plan Of Treatment No Information Insurance Providers Payer Name Payer Address Payer Phone Subscriber Number Group Number Insured Name Patient Relationship to Insured Coverage Start Date Coverage End Date [place] Medicaid Standard [address] [place] [address] [id number] Jared Malave Self - patient is the insured [employer] [address] [place] [phone] Jared Malave Self - patient is the insured 5 Medical (General) History Medical History History ICD Code Heart murmer, depression, PTSD
[2025-07-13 14:00] VITALS: BP 120/77; PULSE 78; RESP 20; TEMP 37.1; O2SAT 98
--- NOTE | 2025-07-13 14:18 | ECG_ITS ---
Test Reason : MED CLEARANCE Blood Pressure : */* mmHG Vent. Rate : 60 BPM Atrial Rate : 60 BPM P-R Int : 116 ms QRS Dur : 88 ms QT Int : 448 ms P-R-T Axes : 51 19 47 degrees QTcB Int : 448 ms Normal sinus rhythm Normal ECG When compared with ECG of 06-Jan-2025 15:11, No significant change was found Referred By: Hazel Aceves Electronically Signed By: MONICA RAMOS
--- NOTE | 2025-07-13 18:51 | PC.NURSE ---
RN to Rn with Marcia at [facility]
--- NOTE | 2025-07-13 18:58 | MHC.CARE ---
Pt was accepted to [facility] for [facility]. ETA Next available. Accepting is Dr. Stone Su
[2025-07-13 19:20] VITALS: BP 133/69; PULSE 58; RESP 16; TEMP 37.2; O2SAT 97
[2025-07-13 19:21] VITALS: BP 133/69; PULSE 58; RESP 16; TEMP 37.2; O2SAT 97
== END 2025-07-13 19:47 ==
PROVIDERS: Emergency Provider Emergency Medicine
DX: F14.20 Cocaine dependence, uncomplicated (principal); R45.851 Suicidal ideations; R44.3 Hallucinations, unspecified; F32.A Depression, unspecified
CPT/HCPCS: 36415; 80048; 80076; 80307; 81001; 83735; 85025; 87086; 93005; 99285; S9485

== ENCOUNTER → 2025-07-13 14:18 | Outpatient (BNV) | payer OTHER, SELFPAY | PROVIDERS: Emergency Provider Emergency Medicine; Visit Provider Internal Medicine | DX: Z13.6 Encounter for screening for cardiovascular disorders (principal) | CPT/HCPCS: 93010 ==